=== PATIENT | male | born 1975 | race Caucasian/White ===

== ENCOUNTER 2020-08-18 10:48 | Outpatient (REF) | payer OTHER, SELFPAY ==
[2020-08-18 11:02] LABS: MANUAL DIFF FLAG NO
[2020-08-18 11:38] LABS: Basophils Absolute Auto 0.1 X10*3/uL (0.0-0.2); Basophils Percent Auto 1.1 % (0-2); Eosinophils Absolute Auto 0.2 X10*3/uL (0.0-0.4); Eosinophils Percent Auto 2.8 % (0-4); Hemoglobin 14.8 g/dl (14.0-18.0); Imm Gran Abs Auto 0.02 X10*3/uL (0.00-0.03); Imm Gran Pct Auto 0.3 % (0.0-0.4); Lymphocytes Absolute Auto 2.6 X10*3/uL (1.2-4.9); Lymphocytes Percent Auto 40.6 % (20-40); Mean Corpuscular HGB Conc 32.2 g/dl (31.0-36.0); Mean Corpuscular Hemoglobin 30.2 pg (27.0-33.0); Mean Corpuscular Volume 93.9 fL (80-98); Mean Platelet Volume 11.2 fL (9.4-12.4); Monocytes Absolute Auto 0.5 X10*3/uL (0.1-1.2); Neutrophils Absolute Auto 3.1 X10*3/uL (2.0-8.3); Neutrophils Percent Auto 48.2 % (45-73); Platelet Count 223 X10*3/uL (160-400); Red Cell Distribution Width 12.9 % (11.0-16.0); White Blood Count 6.5 X10*3/uL (4.8-10.8)
[2020-08-18 11:52] LABS: Glucose Urine UA NEG (NEG); Leukocyte Esterase Urine NEG (NEG); Nitrite Urine NEG (NEG); Specific Gravity - Urine >= 1.030 (1.005-1.025); Urine Blood NEG (NEG); Urine Ketones NEG (NEG); Urine Protein TRACE MG/DL (NEG-TRACE)
[2020-08-18 11:57] LABS: Appearance Urine CLEAR; Color Urine YELLOW
[2020-08-18 12:56] LABS: Alanine Aminotransferase 19 U/L (0-40); Albumin Level 4.1 g/dL (3.5-5.0); Alkaline Phosphatase 54 U/L (39-117); Anion Gap 12 (12-20); Aspartate Amino Transferase 18 U/L (5-37); Bilirubin Total 2.4 mg/dL (0.0-1.0); Blood Urea Nitrogen 17 mg/dL (9-16); Calcium 9.3 mg/dL (8.4-10.2); Carbon Dioxide 26 mmol/L (22-29); Chloride 107 mmol/L (96-108); Cholesterol 226 mg/dL; Estimated Glomerular Filt Rate > 60; Glucose Fasting 98 mg/dL (60-99); HDL Cholesterol 60 mg/dL; LDL Cholesterol Calculated 149 mg/dl; Potassium 3.8 mmol/L (3.3-5.1); Sodium 141 mmol/L (135-145); Total Protein 6.9 g/dL (6.5-8.0); Triglycerides 87 mg/dL
[2020-08-18 13:51] LABS: PSA,Total (Free>4and<10) 0.81 ng/mL (0.00-4.00)
== END 2020-08-18 10:49 | disposition home or self-care (01) ==
LOC: HO.LNP 10:48
PROVIDERS: Visit Provider Internal Medicine
DX: Z00.00 Encounter for general adult medical examination without abnormal findings (principal); I10 Essential (primary) hypertension
CPT/HCPCS: 80053; 80061; 81003; 84153; 85025

== ENCOUNTER 2021-08-17 10:52 | Outpatient (REF) | payer OTHER, SELFPAY ==
[2021-08-17 10:54] LABS: MANUAL DIFF FLAG NO
[2021-08-17 11:21] LABS: Appearance Urine CLEAR; Color Urine YELLOW; Glucose Urine UA NEG (NEG); Leukocyte Esterase Urine NEG (NEG); Nitrite Urine NEG (NEG); Specific Gravity - Urine 1.025 (1.005-1.025); Urine Blood NEG (NEG); Urine Ketones NEG (NEG); Urine Protein NEG (NEG-TRACE)
[2021-08-17 11:24] LABS: Basophils Absolute Auto 0.1 X10*3/uL (0.0-0.2); Basophils Percent Auto 0.8 % (0-2); Eosinophils Absolute Auto 0.3 X10*3/uL (0.0-0.4); Eosinophils Percent Auto 3.9 % (0-4); Hematocrit 43.8 % (42.0-52.0); Hemoglobin 14.1 g/dl (14.0-18.0); Imm Gran Abs Auto 0.02 X10*3/uL (0.00-0.03); Imm Gran Pct Auto 0.3 % (0.0-0.4); Lymphocytes Absolute Auto 2.8 X10*3/uL (1.2-4.9); Lymphocytes Percent Auto 35.8 % (20-40); Mean Corpuscular HGB Conc 32.2 g/dl (31.0-36.0); Mean Corpuscular Hemoglobin 30.3 pg (27.0-33.0); Mean Platelet Volume 11.4 fL (9.4-12.4); Monocytes Absolute Auto 0.6 X10*3/uL (0.1-1.2); Monocytes Percent Auto 7.3 % (2-11); NRBC Pct Auto 0.5 /100WBC (0.0-0.2); Neutrophils Percent Auto 51.9 % (45-73); Platelet Count 194 X10*3/uL (160-400); Red Blood Count 4.66 X10*6/uL (4.60-5.80); Red Cell Distribution Width 13.2 % (11.0-16.0); White Blood Count 7.7 X10*3/uL (4.8-10.8)
[2021-08-17 11:33] LABS: Alanine Aminotransferase 25 U/L (0-40); Albumin Level 3.9 g/dL (3.5-5.0); Alkaline Phosphatase 49 U/L (39-117); Anion Gap 13 (12-20); Aspartate Amino Transferase 18 U/L (5-37); Bilirubin Total 2.1 mg/dL (0.0-1.0); Blood Urea Nitrogen 12 mg/dL (9-16); Calcium 8.8 mg/dL (8.4-10.2); Carbon Dioxide 26 mmol/L (22-29); Chloride 106 mmol/L (96-108); Cholesterol 200 mg/dL; Estimated Glomerular Filt Rate > 60; Glucose Fasting 97 mg/dL (60-99); HDL Cholesterol 52 mg/dL; LDL Cholesterol Calculated 127 mg/dl; Potassium 3.9 mmol/L (3.3-5.1); Sodium 141 mmol/L (135-145); Total Protein 6.8 g/dL (6.5-8.0); Triglycerides 105 mg/dL
[2021-08-17 11:55] LABS: PSA,Total (Free>4and<10) 0.73 ng/mL (0.00-4.00); WBC Urine 0 /HPF (0-4)
[2021-08-17 11:56] LABS: Mucus Urine TRACE /LPF; RBC Urine 0-2 /HPF (0); Squamous Epithelial Cell Urine TRACE /LPF
== END 2021-08-17 10:53 | disposition home or self-care (01) ==
LOC: HO.LNP 10:52
PROVIDERS: PCP Internal Medicine; Visit Provider Internal Medicine
DX: Z00.00 Encounter for general adult medical examination without abnormal findings (principal); Z12.5 Encounter for screening for malignant neoplasm of prostate; I10 Essential (primary) hypertension
CPT/HCPCS: 80053; 80061; 81001; 84153; 85025

== ENCOUNTER 2021-08-19 10:22 | Outpatient (REF) | payer OTHER, SELFPAY ==
[2021-08-19 10:26] LABS: MANUAL DIFF FLAG NO
[2021-08-19 11:10] LABS: Basophils Absolute Auto 0.1 X10*3/uL (0.0-0.2); Eosinophils Absolute Auto 0.3 X10*3/uL (0.0-0.4); Hemoglobin 14.3 g/dl (14.0-18.0); Imm Gran Abs Auto 0.02 X10*3/uL (0.00-0.03); Imm Gran Pct Auto 0.3 % (0.0-0.4); Lymphocytes Absolute Auto 2.8 X10*3/uL (1.2-4.9); Lymphocytes Percent Auto 41.3 % (20-40); Mean Corpuscular HGB Conc 32.5 g/dl (31.0-36.0); Mean Corpuscular Hemoglobin 30.4 pg (27.0-33.0); Mean Corpuscular Volume 93.6 fL (80.0-98.0); Mean Platelet Volume 11.7 fL (9.4-12.4); Monocytes Absolute Auto 0.4 X10*3/uL (0.1-1.2); Monocytes Percent Auto 5.9 % (2-11); Neutrophils Absolute Auto 3.2 x10*3/uL (2.0-8.3); Neutrophils Percent Auto 47.5 % (45-73); Platelet Count 191 X10*3/uL (160-400); White Blood Count 6.8 X10*3/uL (4.8-10.8)
== END 2021-08-19 10:23 | disposition home or self-care (01) ==
LOC: HO.LNP 10:22
PROVIDERS: Visit Provider Internal Medicine
DX: R79.89 Other specified abnormal findings of blood chemistry (principal)
CPT/HCPCS: 85025

== ENCOUNTER → 2021-10-05 14:57 | Outpatient (REF) | payer OTHER, SELFPAY ==
--- NOTE | 2021-10-05 15:01 | CA_ITS ---
Transthoracic Echocardiogram Patient (Last, First, Middle): Domingo Villa L Gender: Male Date of : 1975 Age: 46 Procedure Date: 10/05/2021 Procedure Type: Transthoracic Echocardiogram Location: OP Height: 180.34 cm Weight: 79.38 kg BSA: 1.99 m2 Heart Rate: bpm BP: 122 / 60 mmHg Newspaper Copy Editor: Referring MD: Murray Muhammad MD Symptoms: Q23.1 BICUSPID AORTIC VALVE Study Quality: Fair ECG Rhythm: Sinus Conclusions: - The left ventricular systolic function is normal. The calculated ejection fraction is 57% by biplane method. - Stated bicuspid valve based on prior studies but not well visualized in this study. Mild aortic stenosis. No significant regurgitation. - There is mild dilatation of the ascending aorta measuring 3.80 cm. Findings Left Ventricle Normal left ventricular cavity size. There is normal left ventricular wall thickness. The left ventricular systolic function is normal. The calculated ejection fraction is 57% by biplane method. There is no evidence of regional wall motion abnormalities. Diastolic function is normal for age. Right Ventricle Normal right ventricular cavity size and systolic function. Atria Both atria are normal in size. Aortic Valve The aortic valve was not well visualized. There is mild calcification of the aortic valve. There is mild aortic valve stenosis. The mean gradient is 7 mmHg. The aortic valve area is 1.53 cm2. There is trace (trivial) aortic valve regurgitation. Images not adequate to comment on bicuspid valve. Mitral Valve The mitral valve appears normal. There is trace mitral valve regurgitation. There is no mitral valve stenosis. Pulmonic Valve The pulmonic valve is likely normal. Tricuspid Valve There is trace tricuspid valve regurgitation. The pulmonary artery systolic pressure is normal. Great Vessels The sinuses of valsalva is normal in size. There is mild dilatation of the ascending aorta measuring 3.80 cm. Venous The inferior vena cava is normal in size and collapses greater than 50% with inspiration. Pericardium/Pleural There is no evidence of pericardial effusion. Prior Study Comparison Changes noted compared to prior study dated: 11/08/2019. Aortic valve area appears slightly smaller than previous study. See comments on ascending aorta. Measurements 2D Linear Measurements IVSd: 1.01 0.6-0.9/0.6-1.0 cm LVIDd: 5.31 3.9-5.3/4.2-5.9 cm LVIDd Index: 2.67 2.4-3.2/2.2-3.1 cm/m2 LVIDs: 3.37 2.0-3.6 cm LVPWd: 1.07 0.7-1.1 cm Ao Root: 3.40 2.1-3.5 cm LA Diam: 3.40 2.7-3.8/3.0-4.0 cm LAIDs Index: 1.71 1.5-2.3 cm/m2 LV Mass: 264.02 67-162/88-224 g LV Mass Index: 132.67 43-95/49-115 g/m2 LVOT Diam: 2.00 3.0+(-)1.3 cm 2D Systolic Function EF 4C: 52.00 >55% EF 2C: 61.80 >55% EF BiP: 57.30 >55% Mitral Valve MV Pk E: 0.79 MV PK A: 0.69 MV Decel Time: 278.00 E/A: 1.10 E'Lateral: 12.40 E'Medial: 7.83 E/E' Med: 10.10 E/E' Lat: 6.40 PHT: 81.00 MVA PHT: 2.72 Decel [place]: 2.84 Aortic Valve AoV Pk Lisandro: 1.91 AoV Mn Lisandro: 1.25 AoV VTI: 0.48 AoV Pk Grad: 15.00 Aov Mn Grad: 7.00 MAL Cont.VTI: 1.53 LVOT LVOT Pk Lisandor: 0.91 LVOT Mn Lisandro: 0.65 LVOT VTI: 0.24 LVOT Pk Grad: 3.00 LVOT Mn Grad: 2.00 LVOT Diam: 2.00 LVOT Area: 3.14 Diastolic Function MV Pk E: 0.79 MV Pk A: 0.69 E/A: 1.10 E'Medial: 7.83 E/E' Med: 10.10 E' Laterial: 12.40 E/E' Lat: 6.40 Right Ventricle TAPSE (mm): 26.00 TVS' Lisandro: 11.00 Tricuspid Valve TR Pk Lisandro: 1.95 TR Pk Grad: 15.00 RA Press: 3.00 RVSP: 18.00 Great Vessels Aorta Ao Root-2D: 3.40 2.0-3.7 cm Ao Asc: 3.80 2.1-3.4 cm Pulmonary Valve PV Pk Lisandro: 1.04 Peak PV Grad: 4.00 Updated in Other Vendor System with Status of Final Tien Andre MD electronically signed on 10/06/2021 10:50:07 AM with status of Final
== END ==
LOC: HO.CARD 14:57
PROVIDERS: PCP Internal Medicine; Visit Provider Internal Medicine
DX: Q23.1 Congenital insufficiency of aortic valve (principal)
CPT/HCPCS: 93306

== ENCOUNTER 2021-11-26 15:47 | Outpatient (REF) | payer OTHER, SELFPAY ==
[2021-12-03 23:21] LABS: Stone Source RIGHT KIDNEY STONE
== END 2021-11-26 15:48 | disposition home or self-care (01) ==
LOC: HO.LNP 15:47
PROVIDERS: Visit Provider Internal Medicine
DX: N20.0 Calculus of kidney (principal)
CPT/HCPCS: 82365; 88300

== ENCOUNTER 2022-01-26 12:14 | Day surgery (SDC) | payer OTHER, SELFPAY ==
--- NOTE | 2022-01-25 13:33 | HO.ANESPROP2 ---
Documented by User: Mckenzie Askew NP 01/25/22 13:36 HPI - Anesthesia Eval Consult details Narrative: 46yo M for Colonoscopy [facility] Past Medical History Medical History Bicuspid aortic valve GERD (gastroesophageal reflux disease) Kidney stone (~11/2021) PVCs (premature ventricular contractions) Surgical History Surgical History Hx of esophagogastroduodenoscopy (~2015) Social History Social History (Updated 01/25/22 @ 13:34 by Mckenzie Askew NP) Patient Tobacco Use Status: Never used Tobacco Use of substances other than those prescribed or required for medical reasons: No Are you DNR?: No Advance Directives: No Advance Directives Information Provided: Yes Meds Allergies Allergy/AdvReac Type Severity Reaction Status Date / Time sulfa drugs Allergy Unknown Uncoded 08/21/18 00:00 Exam Exam Date and Time: January 25, 2022 1333 Narrative Narrative: ECHO 09/2021 Conclusions: - The left ventricular systolic function is normal.? The ? calculated ejection fraction is 57% by biplane method. ? - Stated bicuspid valve based on prior studies but not well? ? ? visualized in this study.? Mild aortic stenosis.? No significant regurgitation. ? - There is mild dilatation of the ascending aorta measuring 3.80 cm.? Assessment and Plan Assessment Anesthesia Assessment: Chart Reviewed Documented by User: Wong Solano MD 01/26/22 13:26 [facility] Past Medical History Medical History Bicuspid aortic valve GERD (gastroesophageal reflux disease) Kidney stone (~11/2021) PVCs (premature ventricular contractions) Family History Family history of problems with anesthesia: No Surgical History Surgical History Hx of esophagogastroduodenoscopy (~2016) History of Problems with Anesthesia: No Social History Social History (Updated 01/25/22 @ 13:34 by Mckenzie Askew NP) Patient Tobacco Use Status: Never used Tobacco Use of substances other than those prescribed or required for medical reasons: No Are you DNR?: No Advance Directives: No Advance Directives Information Provided: Yes Meds Allergies Allergy/AdvReac Type Severity Reaction Status Date / Time sulfa drugs Allergy Unknown Uncoded 08/21/18 00:00 Exam Airway Mallampati Class: II TM Dist: >3cm Neck ROM: Full Loose/Missing/Broken Teeth: No Heart: rrr Lungs: clear Assessment and Plan Final Anesthetic Review Family History of Problems with Anesthesia: No History of Problems with Anesthesia: No NPO: Yes ASA Class: II Final Preanesthetic Review: No Changes in Pt Med Stat, Meds/Allgs Chart Reviewed, Consent Obtained/Reviewed and Anes Risks/Benef Reviewed Patient Risk: Low Procedure Risk: Low Anesthetic Plan Anesthetic Plan: MAC: Disposition: Standard PACU
[2022-01-26 12:27] VITALS: BMI 24.4
[2022-01-26 12:37] VITALS: BP 145/82; PULSE 56; RESP 18; TEMP 36.1; O2SAT 95
[2022-01-26] MEDS: Lactated Ringers 1,000 ML 50 ML IVCONT (12:51)
--- NOTE | 2022-01-26 13:23 | MHC.SHP ---
Pre-Procedural Eval Section A Date of Service: 01/26/22 The patient is an INPATIENT: No Changes since office visit: No Cold of Flu in the past 2 weeks, No New Medical Problems, No Changes in Medication and No Patient answered all questions The History & Physical has been completed within 30 days and I have reviewed it.: Yes Section B Chief Complaint: Encounter for screening for malignant neoplasm of Allergies: Allergies Allergy/AdvReac Type Severity Reaction Status Date / Time sulfa drugs Allergy Unknown Uncoded 08/21/18 00:00 Plan I have reviewed the history and physical and performed a pertinent physical examination on my patient. No changes have occurred unless specified.
--- NOTE | 2022-01-26 13:53 | PM.OP ---
Brief Operative Note Date of Service: 01/26/22 Pre-op diagnosis: screening Post-op diagnosis: same Procedure: colonoscopy Surgeon: Vega Jacinto Anesthesia: MAC Was an Woodworking Machine Operator used for this Procedure?: No Estimated blood loss (mL): 2 Pathology: other Condition: stable Disposition: PACU
[2022-01-26 14:02] VITALS: BP 116/62; PULSE 61; RESP 12; TEMP 36; O2SAT 98
[2022-01-26 14:17] VITALS: BP 137/75; PULSE 57; RESP 18; TEMP 36.1; O2SAT 100
--- NOTE | 2022-01-27 01:04 | OP_ITS ---
SURGEON: Vega Jacinto MD INDICATIONS: Colon cancer screening. PREOPERATIVE DIAGNOSIS: POSTOPERATIVE DIAGNOSIS: PROCEDURE PERFORMED: Colonoscopy to the terminal ileum with biopsy. ESTIMATED BLOOD LOSS: COMPLICATIONS: ANESTHESIA: Monitored anesthesia care. ASSISTANTS: SPECIMENS: DESCRIPTION OF PROCEDURE: Procedure date is 01/26/22. History and physical performed. The risks and benefits of the procedure were explained to the patient. Informed consent was obtained. The patient was placed in the left lateral decubitus position. A digital rectal exam was performed and was found to be normal. The Olympus pediatric video colonoscope was introduced into the rectum and advanced to the cecum without difficulty. The cecum was identified by transillumination, palpation, and identification of ileocecal valve. Examination was performed. The scope was removed. He tolerated the procedure well and was transferred to the recovery area in stable condition. FINDINGS: The terminal ileum was normal. The visualized colonic mucosa was normal. The quality of the prep was good. A single polyp measuring less than 5 mm was identified at 65 cm was removed with biopsy forceps. No other polyps were seen. Retroflexed examination showed some small internal hemorrhoids. IMPRESSION: Colon polyp. RECOMMENDATION: Follow up the biopsy results. MD RAFAL Packer/OZZY / [id number] MTDFeliberto
== END 2022-01-26 14:47 | disposition home or self-care (01) ==
PROVIDERS: PCP Internal Medicine; Visit Provider Internal Medicine Gastroenterology
PROC: 0DJD8ZZ Inspection of Lower Intestinal Tract, Via Natural or Artificial Opening Endoscopic (ICD-10-PCS; CPT 45378; principal; 2022-01-26 13:00)
DX: Z12.11 Encounter for screening for malignant neoplasm of colon (principal); D12.4 Benign neoplasm of descending colon; K64.8 Other hemorrhoids; K21.9 Gastro-esophageal reflux disease without esophagitis; Z88.2 Allergy status to sulfonamides
CPT/HCPCS: 45380; 88305

== ENCOUNTER 2022-08-19 11:21 | Outpatient (REF) | payer OTHER, SELFPAY ==
[2022-08-19 11:24] LABS: MANUAL DIFF FLAG NO
[2022-08-19 11:46] LABS: Basophils Absolute Auto 0.1 X10*3/uL (0.0-0.2); Basophils Percent Auto 0.8 % (0-2); Eosinophils Absolute Auto 0.2 X10*3/uL (0.0-0.4); Eosinophils Percent Auto 2.3 % (0-4); Hematocrit 47.8 % (42.0-52.0); Hemoglobin 15.4 g/dl (14.0-18.0); Imm Gran Abs Auto 0.03 X10*3/uL (0.00-0.03); Imm Gran Pct Auto 0.3 % (0.0-0.4); Lymphocytes Absolute Auto 3.7 X10*3/uL (1.2-4.9); Lymphocytes Percent Auto 38.2 % (20-40); Mean Corpuscular HGB Conc 32.2 g/dl (31.0-36.0); Mean Corpuscular Hemoglobin 30.4 pg (27.0-33.0); Mean Corpuscular Volume 94.5 fL (80.0-98.0); Mean Platelet Volume 11.3 fL (9.4-12.4); Monocytes Absolute Auto 0.6 X10*3/uL (0.1-1.2); Monocytes Percent Auto 6.2 % (2-11); Neutrophils Percent Auto 52.2 % (45-73); Platelet Count 221 X10*3/uL (160-400); Red Blood Count 5.06 X10*6/uL (4.60-5.80); Red Cell Distribution Width 13.1 % (11.0-16.0); White Blood Count 9.6 X10*3/uL (4.8-10.8)
[2022-08-19 11:51] LABS: Appearance Urine Clear; Color Urine Yellow; Glucose Urine UA Negative (Negative); Leukocyte Esterase Urine Negative (Negative); Nitrite Urine Negative (Negative); PH 5.5 (5.0-9.0); Specific Gravity - Urine 1.025 (1.005-1.025); Urine Blood Negative (Negative); Urine Ketones Negative (Negative); Urine Protein Negative (Neg-Trace)
[2022-08-19 11:55] LABS: Bacteria Urine None Seen (None Seen); Squamous Epithelial Cell Urine 0-2 /HPF (0-2); WBC Urine 0-5 /HPF (0-5)
[2022-08-19 12:28] LABS: Alanine Aminotransferase 23 U/L (0-40); Albumin Level 4.1 g/dL (3.5-5.0); Alkaline Phosphatase 61 U/L (39-117); Anion Gap 11 (12-20); Aspartate Amino Transferase 18 U/L (5-37); Bilirubin Total 2.3 mg/dL (0.0-1.0); Blood Urea Nitrogen 17 mg/dL (9-16); Calcium 9.4 mg/dL (8.4-10.2); Carbon Dioxide 29 mmol/L (22-29); Chloride 106 mmol/L (96-108); Cholesterol 257 mg/dL; Estimated Glomerular Filt Rate > 60; Glucose Fasting 104 mg/dL (60-99); HDL Cholesterol 60 mg/dL; LDL Cholesterol Calculated 177 mg/dl; Potassium 3.8 mmol/L (3.3-5.1); Sodium 142 mmol/L (135-145); Total Protein 7.4 g/dL (6.5-8.0); Triglycerides 103 mg/dL
[2022-08-19 12:40] LABS: PSA,Total (Free>4and<10) 0.84 ng/mL (0.00-4.00)
== END 2022-08-19 11:22 | disposition home or self-care (01) ==
LOC: HO.LNP 11:21
PROVIDERS: Visit Provider Internal Medicine
DX: Z00.00 Encounter for general adult medical examination without abnormal findings (principal); Z12.5 Encounter for screening for malignant neoplasm of prostate; I10 Essential (primary) hypertension
CPT/HCPCS: 80053; 80061; 81001; 84153; 85025

== ENCOUNTER 2023-08-24 11:06 | Outpatient (REF) | payer OTHER, SELFPAY ==
[2023-08-24 11:12] LABS: MANUAL DIFF FLAG NO
[2023-08-24 11:16] LABS: Basophils Absolute Auto 0.1 X10*3/uL (0.0-0.2); Basophils Percent Auto 0.8 % (0-2); Eosinophils Absolute Auto 0.2 X10*3/uL (0.0-0.4); Eosinophils Percent Auto 2.7 % (0-4); Hematocrit 46.1 % (42.0-52.0); Imm Gran Abs Auto 0.03 X10*3/uL (0.00-0.03); Imm Gran Pct Auto 0.3 % (0.0-0.4); Lymphocytes Absolute Auto 3.5 X10*3/uL (1.2-4.9); Mean Corpuscular HGB Conc 32.5 g/dl (31.0-36.0); Mean Corpuscular Hemoglobin 30.2 pg (27.0-33.0); Mean Corpuscular Volume 92.8 fL (80.0-98.0); Mean Platelet Volume 11.4 fL (9.4-12.4); Monocytes Absolute Auto 0.6 X10*3/uL (0.1-1.2); Monocytes Percent Auto 6.5 % (2-11); Neutrophils Absolute Auto 4.5 x10*3/uL (2.0-8.3); Neutrophils Percent Auto 50.7 % (45-73); Platelet Count 243 X10*3/uL (160-400); Red Blood Count 4.97 X10*6/uL (4.60-5.80); Red Cell Distribution Width 13.2 % (11.0-16.0); White Blood Count 8.9 X10*3/uL (4.8-10.8)
[2023-08-24 11:26] LABS: Appearance Urine Clear; Color Urine Yellow; Glucose Urine UA Negative (Negative); Leukocyte Esterase Urine Negative (Negative); Nitrite Urine Negative (Negative); PH 6.5 (5.0-9.0); Urine Blood Negative (Negative); Urine Ketones Negative (Negative); Urine Protein Negative (Neg-Trace)
[2023-08-24 11:29] LABS: Bacteria Urine None Seen (None Seen); Hyaline Casts Urine 0-2 /LPF (0-2); RBC Urine 0-2 /HPF (0-2); Squamous Epithelial Cell Urine 0-2 /HPF (0-2); WBC Urine 0-5 /HPF (0-5)
[2023-08-24 11:31] LABS: Alanine Aminotransferase 39 U/L (0-40); Albumin Level 4.1 g/dL (3.5-5.0); Alkaline Phosphatase 71 U/L (39-117); Anion Gap 12 (12-20); Aspartate Amino Transferase 23 U/L (5-37); Bilirubin Total 1.3 mg/dL (0.0-1.0); Blood Urea Nitrogen 16 mg/dL (9-16); Calcium 9.2 mg/dL (8.4-10.2); Carbon Dioxide 27 mmol/L (22-29); Chloride 106 mmol/L (96-108); Cholesterol 226 mg/dL (<200); Estimated Glomerular Filt Rate > 60; Glucose Fasting 100 mg/dL (60-99); HDL Cholesterol 53 mg/dL (>40); LDL Cholesterol Calculated 156 mg/dL (<100); Potassium 4.2 mmol/L (3.3-5.1); Sodium 141 mmol/L (135-145); Total Protein 7.1 g/dL (6.5-8.0); Triglycerides 86 mg/dL (<150)
[2023-08-24 11:54] LABS: PSA,Total (Free>4and<10) 1.32 ng/mL (0.00-4.00)
== END 2023-08-24 11:07 | disposition home or self-care (01) ==
LOC: HO.LNP 11:06
PROVIDERS: Visit Provider Internal Medicine
DX: Z00.00 Encounter for general adult medical examination without abnormal findings (principal); I10 Essential (primary) hypertension; E78.00 Pure hypercholesterolemia, unspecified; Z12.5 Encounter for screening for malignant neoplasm of prostate
CPT/HCPCS: 80053; 80061; 81001; 84153; 85025

== ENCOUNTER → 2023-10-03 14:57 | Outpatient (REF) | payer OTHER, SELFPAY ==
--- NOTE | 2023-10-03 15:00 | CA_ITS ---
Transthoracic Echocardiogram Patient (Last, First, Middle): Domingo Villa L Gender: Male Date of : 1975 Age: 48 Procedure Date: 10/03/2023 Procedure Type: Transthoracic Echocardiogram Location: OP Height: 180.34 cm Weight: 82.56 kg BSA: 2.03 m2 Heart Rate: bpm BP: 130 / 84 mmHg Spool Hauler: JUANCHO Referring MD: Murray Muhammad MD Symptoms: Q23.1 BICUSPID AV Study Quality: Adequate ECG Rhythm: Sinus Conclusions: - The left ventricular systolic function is normal. The calculated ejection fraction is 62% by biplane method. - There is a bicuspid aortic valve. There is mild aortic valve regurgitation. - There is mild dilatation of the ascending aorta measuring 3.80 cm. Findings Left Ventricle Normal left ventricular cavity size. There is normal left ventricular wall thickness. The left ventricular systolic function is normal. The calculated ejection fraction is 62% by biplane method. There is no evidence of regional wall motion abnormalities. Diastolic function is normal for age. Right Ventricle Normal right ventricular cavity size and systolic function. Atria Both atria are normal in size. Aortic Valve There is a bicuspid aortic valve. There is no aortic valve stenosis. There is mild aortic valve regurgitation. Mitral Valve The mitral valve appears normal. There is trace mitral valve regurgitation. There is no mitral valve stenosis. Pulmonic Valve The pulmonic valve is likely normal. Tricuspid Valve There is mild tricuspid valve regurgitation. There is no evidence of pulmonary hypertension. Great Vessels There is mild dilatation of the ascending aorta measuring 3.80 cm. Venous The inferior vena cava is normal in size and collapses greater than 50% with inspiration. Pericardium/Pleural There is no evidence of pericardial effusion. Prior Study Comparison No significant change compared to prior study dated: 10/05/2021. Measurements 2D Linear Measurements IVSd: 1.01 0.6-0.9/0.6-1.0 cm LVIDd: 4.66 3.9-5.3/4.2-5.9 cm LVIDd Index: 2.30 2.4-3.2/2.2-3.1 cm/m2 LVIDs: 2.98 2.0-3.6 cm LVPWd: 0.97 0.7-1.1 cm LA Diam: 3.70 2.7-3.8/3.0-4.0 cm LAIDs Index: 1.82 1.5-2.3 cm/m2 LV Mass: 199.09 67-162/88-224 g LV Mass Index: 98.07 43-95/49-115 g/m2 LVOT Diam: 2.50 3.0+(-)1.3 cm 2D Systolic Function EF 4C: 64.50 >55% EF 2C: 60.20 >55% EF BiP: 62.30 >55% Mitral Valve MV Pk E: 0.81 MV PK A: 0.79 MV Decel Time: 298.00 E/A: 1.00 E'Lateral: 11.50 E'Medial: 9.68 E/E' Med: 8.40 E/E' Lat: 7.00 PHT: 87.00 MVA PHT: 2.53 Decel [place]: 2.72 Aortic Valve AoV Pk Lisandro: 2.09 AoV Mn Lisandro: 1.55 AoV VTI: 0.44 AoV Pk Grad: 17.00 Aov Mn Grad: 11.00 MAL Cont.VTI: 2.28 AI Pk Lisandro: 3.96 AI VTI: 2.15 LVOT LVOT Pk Lisandro: 0.92 LVOT Mn Lisandro: 0.66 LVOT VTI: 0.20 LVOT Pk Grad: 3.00 LVOT Mn Grad: 2.00 LVOT Diam: 2.50 LVOT Area: 4.91 Diastolic Function MV Pk E: 0.81 MV Pk A: 0.79 E/A: 1.00 E'Medial: 9.68 E/E' Med: 8.40 E' Laterial: 11.50 E/E' Lat: 7.00 Right Ventricle TAPSE (mm): 25.60 TVS' Lisandro: 13.30 Tricuspid Valve TR Pk Lisandro: 2.16 TR Pk Grad: 19.00 RA Press: 3.00 RVSP: 22.00 Great Vessels Aorta Sinus of Valsalva: 4.03 2.0-3.[address] [place]: 2.97 1.7-3.4 cm Ao Asc: 3.80 2.1-3.4 cm Updated in Other Vendor System with Status of Final Tien Andre MD electronically signed on 10/04/2023 10:25:35 AM with status of Final
== END ==
LOC: HO.CARD 14:57
PROVIDERS: PCP Internal Medicine; Visit Provider Internal Medicine
DX: Q23.1 Congenital insufficiency of aortic valve (principal)
CPT/HCPCS: 93306

== ENCOUNTER → 2023-10-03 15:00 | Outpatient (BNV) | payer OTHER, SELFPAY | PROVIDERS: PCP Internal Medicine; Visit Provider Internal Medicine | DX: Q23.1 Congenital insufficiency of aortic valve (principal); I36.1 Nonrheumatic tricuspid (valve) insufficiency | CPT/HCPCS: 93303 ==

== ENCOUNTER 2023-12-29 18:23 | Emergency (ER) | payer OTHER, SELFPAY ==
--- NOTE | ~2023-12-29 | US_ITS ---
EXAMINATION: US TRIPLEX LOWER EXTREMITY, LEFT CLINICAL INFORMATION: Left lower extremity pain. COMPARISON: None available. TECHNIQUE: Color-flow triplex imaging with spectral analysis and compression Doppler were performed on the left lower extremity. FINDINGS: Respiratory variation, normal compression and augmented flow are noted throughout the left lower extremity. The visualized common femoral vein, superficial femoral vein, profunda femoral vein, popliteal vein and midcalf peroneal and posterior tibial venous segments show no evidence of deep venous thrombosis. There is no Mirza's cyst. There are prominent left groin lymph nodes measuring up to 2.1 cm. US/US venous duplex LE LT IMPRESSION: No evidence of deep venous thrombosis involving the left lower extremity. Electronically signed by: Grayson Echevarria MD 12/29/2023 11:48 PM EDT
[2023-12-29 18:29] VITALS: BP 150/72; PULSE 70; RESP 18; TEMP 37.1; O2SAT 100; BMI 27.9
--- NOTE | 2023-12-29 18:29 | ED_ITS ---
HPI - General Adult General Chief complaint: Extremity Injury, Lower Stated complaint: L thigh pain, no known injury Time Seen by Provider: 12/29/23 20:58 Source: patient, RN notes reviewed and old records reviewed Mode of arrival: ambulatory Limitations: no limitations History of Present Illness ED Provider: Blessing HPI narrative: 48-year-old male who denies any past medical history presents for evaluation of left thigh pain Patient reports he has had pain for the last 5 days on Monday He reports that he was camping in the few days prior. He does not believe he was bit by anything. He denies any strenuous activity. Denies any falls or trauma to the left leg. 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 Denies any history of DVT or PE He has not noticed any redness, swelling to the left inner thigh where his pain is He reports his pain has been getting worse over the last few days Related Data Previous Rx's ?Medication ?Instructions ?Recorded cephalexin 500 mg capsule 500 mg PO QID #27 caps 12/29/23 Allergies Allergy/AdvReac Type Severity Reaction Status Date / Time sulfa drugs Allergy Unknown Hives Uncoded 12/29/23 18:32 Review of Systems Constitutional: Constitutional: Denies body ache(s), Denies chills, Denies fever(s) and Denies headache(s) Eyes: Eyes: Denies blurry vision ENT: Denies vertigo and Denies headache(s) Cardiovascular: Cardiovascular: Denies chest pain and Denies dyspnea Respiratory: Respiratory: Denies cough and Denies dyspnea Gastrointestinal: Gastrointestinal: Denies abdominal pain, Denies nausea and Denies vomiting Musculoskeletal: Musculoskeletal: Denies back pain Integumentary/Breasts: Skin/Breast: Denies erythema and Denies rash Neurologic: Denies vertigo and Denies headache(s) ON LICENSE OF [facility] Past Medical History Medical History (Updated 12/29/23 @ 23:21 by Domingo Funk) GERD (gastroesophageal reflux disease) Kidney stone (~11/2021) PVCs (premature ventricular contractions) Bicuspid aortic valve Surgical History Hx of esophagogastroduodenoscopy (~2015) Social History Social History (Updated 01/25/22 @ 13:34 by Mckenzie Askew NP) Patient Tobacco Use Status: Never used Tobacco Advance Directives: No Advance Directives Information Provided: No Do you have a plan to hurt others: No Plan Physical Exam ED Vital Signs: Vital Signs - 24 hr 12/29/23 18:29 12/29/23 20:34 12/29/23 23:40 Temperature 98.7 F 97.0 F 97.0 F Pulse Rate 70 70 70 Respiratory Rate 18 16 16 Blood Pressure 150/72 H 155/94 H 155/94 H Pulse Oximetry 100 99 99 Oxygen Delivery Method Room Air Room Air Room Air BMI result Body Mass Index 27.9 Const General: healthy appearing, comfortable, no acute distress, alert and awake Nutritional Appearance: well nourished Orientation/consciousness: patient oriented x3 HENMT Head: Yes normocephalic and Yes atraumatic Eyes Eyelids: Yes eyelids normal Conjunctivae: conjunctivae normal Sclerae: sclerae normal Corneas: corneas normal Pupils: Equal, round and reactive pupils present EOM: EOMs intact bilaterally Neck Neck: Yes full ROM Resp Effort & Inspection: normal respiratory effort, able to speak in complete senten deann and not labored Cardio Rate: regular rate Rhythm: regular rhythm Skin Other: Patient does have an area about 2 x 4 cm area of faint erythema to the left inner thigh. This area is tender to palpation. No significant edema, no wounds. General skin exam: elasticity normal Neuro General: patient oriented x3 Cranial nerves: Yes Equal, round and reactive pupils present and Yes Bilaterally intact EOM present Cognition (Neuro): normal cognition Extrem Other: Moving all extremities well without any obvious deformities Course Course Course Narrative: This is a rapid medical exam performed by Riley Booth NP: Additional HPI, ROS, PE not included below will be deferred to primary provider. Patient is a 48-year-old male presenting to the ED with complaint of left medial thigh pain since Monday. Progressively worsening. No known injury. Denies any erythema, bruising, swelling. Plan: unable to visualize in triage, will need full exam by primary provider Reevaluation(s) Reevaluation #1: Ultrasound is negative for DVT. The patient does have an enlarged lymph node likely from an acute cellulitis. We will treat with cephalexin. Return precautions were given Time: 23:20 Medications Administered Discontinued Medications Generic Name Dose Route Start Last Admin Trade Name Freq PRN Reason Stop Dose Admin Cephalexin HCl 500 mg 12/29/23 23:20 12/29/23 23:36 Cephalexin 500 Mg Capsule PO 12/29/23 23:21 500 mg ONCE ONE Administration Medical Decision Making Medical Decision Making [facility] Narrative: 48-year-old male presents for evaluation of atraumatic left leg pain. He denies any specific injury. He does have faint redness on exam with some tenderness to the left inner thigh. DVT, cellulitis around the differential. He has no white count, vital signs are stable. It is possible that he was bit by some insect of some sort when he was camping leading to an early cellulitis. Ultrasound of the left lower extremity is pending to evaluate for DVT. The distal extremities warm to the touch he has good pulses, I doubt ischemic limb. There was no trauma to suggest hematoma and compartment syndrome. The compartments are soft on exam as well. Differential Diagnosis Differential Diagnoses: The differential diagnosis associated with the presentation includes Left leg pain DVT Cellulitis Lymphangitis Muscle strain Radiology Impression Discussion of test interpretation with radiology: I have reviewed the radiologist's reading. Radiologist Impression: FINDINGS: Respiratory variation, normal compression and augmented flow are noted throughout the left lower extremity. The visualized common femoral vein, superficial femoral vein, profunda femoral vein, popliteal vein and midcalf peroneal and posterior tibial venous segments show no evidence of deep venous thrombosis. There is no Mirza's cyst. There are prominent left groin lymph nodes measuring up to 2.1 cm. US/US venous duplex LE LT IMPRESSION: No evidence of deep venous thrombosis involving the left lower extremity. Electronically signed by: Grayson Echevarria MD 12/29/2023 11:48 PM EDT Discharge Plan Discharge Clinical Impression: Cellulitis of left leg Patient Disposition: Home, Self-Care Instructions: Cellulitis (ED) Additional Instructions: Your ultrasound did not show any evidence of DVT. Your symptoms are likely related to a skin infection called cellulitis. You possibly acquire this while you were camping last weekend Take the antibiotic every 6 hours for the next week You may also apply warm compresses to the painful area Return for new or worsening symptoms Prescriptions: New cephalexin 500 mg capsule 500 mg PO QID Qty: 27 0RF Interventions: ED Discharge Assessment Last Done: 12/29/23 23:40 Discharge Date/Time: 12/29/23 23:40 Print Language: Hebrew
[2023-12-29 20:34] VITALS: BP 155/94; PULSE 70; RESP 16; TEMP 36.1; O2SAT 99
[2023-12-29] MEDS: cephALEXin 500 MG CAPSULE PO (23:36)
[2023-12-29 23:40] VITALS: BP 155/94; PULSE 70; RESP 16; TEMP 36.1; O2SAT 99
== END 2023-12-29 23:40 | disposition home or self-care (01) ==
PROVIDERS: Emergency Provider Emergency Medicine; PCP Internal Medicine
DX: L03.116 Cellulitis of left lower limb (principal); M79.652 Pain in left thigh; K21.9 Gastro-esophageal reflux disease without esophagitis
CPT/HCPCS: 93971; 99283; 99284

== ENCOUNTER 2024-08-30 10:45 | Outpatient (REF) | payer OTHER, SELFPAY ==
--- OUTSIDE RECORDS SUMMARY | 2024-04-02 04:15 | XMS_ITS ---
Author Organization Murray Muhammad MD Address [address] [place], [place] [phone] Care Team Providers Care Overnight Stocker Name Role Phone Murray Muhammad Primary Care Provider [phone] Allergies Allergen (clinical drug ingredient) Drug/Non Drug [...] Location Date Provider Diagnosis Murray Muhammad MD [address] [place] [address] Drive [address] [place] [phone] 04/02/2024 Murray Muhammad Migraine without aur a [...] current regiment Next Appt Details Provider Name:Murray De Jesus ier, 09/05/2024 08:30:00 AM, [address], [address], [place], [place], [phone], Progress Notes * DIANE SOLARESOB:[birth year] (48 yo M)Acc No.[id number]:04/02/2024 Progress Notes Patient: TAMMI DRUMMOND Provider: Girish Muhammad MD :1975 A ge:48 Y S ex:Male Date:04/02/2024 Address:[address] [facility], [place] [facility] Subjective: * Chief Complaints: * 6 month [...] Generated for Esther de anda/Cortney/Jacielitting on: 0 08/30/2024 11:12 AM EDT History and Physical Notes * [...]
[2024-08-30 10:48] LABS: MANUAL DIFF FLAG NO
[2024-08-30 10:55] LABS: Basophils Absolute Auto 0.1 X10*3/uL (0.0-0.2); Eosinophils Absolute Auto 0.2 X10*3/uL (0.0-0.4); Eosinophils Percent Auto 2.2 % (0-4); Hematocrit 44.7 % (42.0-52.0); Hemoglobin 15.2 g/dl (14.0-18.0); Imm Gran Abs Auto 0.03 X10*3/uL (0.00-0.03); Imm Gran Pct Auto 0.4 % (0.0-0.4); Lymphocytes Absolute Auto 2.7 X10*3/uL (1.2-4.9); Lymphocytes Percent Auto 34.9 % (20-40); Mean Corpuscular Hemoglobin 30.7 pg (27.0-33.0); Mean Corpuscular Volume 90.3 fL (80.0-98.0); Mean Platelet Volume 10.7 fL (9.4-12.4); Monocytes Absolute Auto 0.5 X10*3/uL (0.1-1.2); Monocytes Percent Auto 6.7 % (2-11); Neutrophils Absolute Auto 4.3 x10*3/uL (2.0-8.3); Neutrophils Percent Auto 54.8 % (45-73); Platelet Count 253 X10*3/uL (160-400); Red Blood Count 4.95 X10*6/uL (4.60-5.80); Red Cell Distribution Width 13.2 % (11.0-16.0); White Blood Count 7.8 X10*3/uL (4.8-10.8)
[2024-08-30 11:36] LABS: Alanine Aminotransferase 27 U/L (0-40); Albumin Level 4.2 g/dL (3.5-5.0); Alkaline Phosphatase 65 U/L (39-117); Anion Gap 11 (12-20); Aspartate Amino Transferase 26 U/L (5-37); Bilirubin Total 2.1 mg/dL (0.0-1.0); Blood Urea Nitrogen 23 mg/dL (9-16); Calcium 9.1 mg/dL (8.4-10.2); Carbon Dioxide 27 mmol/L (22-29); Chloride 104 mmol/L (96-108); Cholesterol 243 mg/dL (<200); Estimated Glomerular Filt Rate > 60; Glucose Fasting 88 mg/dL (60-99); HDL Cholesterol 56 mg/dL (>40); LDL Cholesterol Calculated 168 mg/dL (<100); Potassium 3.7 mmol/L (3.3-5.1); Sodium 138 mmol/L (135-145); Total Protein 7.2 g/dL (6.5-8.0); Triglycerides 96 mg/dL (<150)
== END 2024-08-30 10:46 | disposition home or self-care (01) ==
LOC: HO.LNP 10:45
PROVIDERS: Visit Provider Internal Medicine
DX: Z00.00 Encounter for general adult medical examination without abnormal findings (principal); I10 Essential (primary) hypertension; E78.00 Pure hypercholesterolemia, unspecified; Z12.5 Encounter for screening for malignant neoplasm of prostate
CPT/HCPCS: 80053; 80061; 84153; 85025

== ENCOUNTER 2024-10-07 10:32 | Outpatient (REF) | payer OTHER, SELFPAY ==
--- OUTSIDE RECORDS SUMMARY | 2024-10-07 02:45 | XMS_ITS ---
Author Organization Murray Muhammad MD Address [address] [place] [phone] Care Team Providers Care Sand Caster Apprentice Name Role Phone Murray Muhammad Primary Care Provider [phone] Results Component Value Reference Range Notes Blood Urea Nitrogen (Not yet reviewed by provider) Interpretation: Performing Lab:[address] [id number] Notes/Report: Blood Urea Nitrogen 16 9-16 mg/dL Creatinine (Not yet reviewe d by provider) Interpretation: Performing Lab:[facility], [address] [place] [phone] Notes/Report: Creatinine 0.95 0.5-1.4 mg/dL Estimated Glomerular Filt Rate > 60 Chronic Kidney Disease: Estimated GFR < 60 mL/min/1.73m2 Severe Kidney Disease: Estimated GFR < 15 mL/min/1.73m2 REASON FOR VISIT BUN, CREATININE Encounters Encounter Location Date Provider Diagnosis Murray Muhammad MD [address] [place] [phone] 10/07/2024 Murray Muhammad Elevated BUN R79.9 Assessments Encounter Date Diagnosis (ICD Code) Assessment Notes Treatment Notes Treatment Clinical Notes Section Notes 10/07/2024 Elevated BUN (ICD-10 - R79.9) Plan Of Treatment Pending Test Test Name Order Date Blood Urea Nitrogen 10/07/2024 Creatinine 10/07/2024 Next Appt Details Provider Name:Murray De Jesus ier, 03/10/2025 07:00:00 AM, [address] [facility], [address], [place], [place], [phone], Provider Name:Murray De Jesus ier, 09/02/2025 07:30:00 AM, [address] [place] [address] Drive, [address], [place], [place], [phone], Provider Name:Murray De Jesus ier, 09/09/2025 08:30:00 AM, [address] [place] [address], Suite [facility], [place], [place], [phone], Progress Notes * DIANE SOLARESOB:[birth year] (49 yo M)Acc No.[id number]:10/07/2024 Progress Note Patient: TAMMI DRUMMOND Provider: Girish Muhammad MD :1975 A ge:49 Y S ex:Male Date:10/07/2024 Address:[address] [place], [place] [phone] Subjective: * Chief Complaints: * 1 . BUN, CREATININE. * Medical History: Objective: * Vitals: Assessment: * Assessment: 1. E levated BUN - R79.9 Plan: * Treatment: * Procedure Codes: 3 6415 VENIPUNCT, ROUTINE* * * The named appointment provid er may or may not be the originator of this progress note, and it is not deemed complete until electronically signed by the appointment provider. Sign off status: Pending * Provider: Girish Muhammad MD Date: 10/07/2024 Generated for Esther de anda/Cortney/Jacielitting on: 10/07/2024 11:43 AM EDT
[2024-10-07 11:07] LABS: Blood Urea Nitrogen 16 mg/dL (9-16); Estimated Glomerular Filt Rate > 60
== END 2024-10-07 10:33 | disposition home or self-care (01) ==
LOC: HO.LNP 10:32
PROVIDERS: Visit Provider Internal Medicine
DX: R79.89 Other specified abnormal findings of blood chemistry (principal)
CPT/HCPCS: 82565; 84520

== ENCOUNTER → 2024-11-19 08:01 | Outpatient (REF) | payer OTHER, SELFPAY ==
--- OUTSIDE RECORDS SUMMARY | 2024-04-02 04:15 | XMS_ITS ---
Author Organization Murray Muhammad MD Address [address] [place], [place] [phone] Care Team Providers Care Steam And Power Supervisor Name Role Phone Murray Muhammad Primary Care Provider [phone] Allergies Allergen (clinical drug ingredient) Drug/Non Drug [...] Location Date Provider Diagnosis Murray Muhammad MD [address] [place] [address] [place] [phone] 04/02/2024 Murray Muhammad Migraine without aur a [...] regiment Next Appt Details Provider Name:Murray wilder, 03/10/2025 07:00:00 AM, [address] [place] [address], Suite [facility], [place], [place], [phone], Provider Name:Murray wilder, 09/02/2025 07:30:00 AM, [address] [place] [address], [address] [place] [address], [phone], Provider Name:Murray wilder, 09/09/2025 08:30:00 AM, [address] [place] [address], [facility] [place], [phone], Progress Notes * DIANE SOLARESOB:[birth year] (48 yo M)Acc No.[id number]:04/02/2024 Progress Notes Patient: TAMMI DRUMMOND Provider: Girish Muhammad MD :1975 A ge:48 Y S ex:Male Date:04/02/2024 Address:[address] [place], [place] [address] Subjective: * Chief Complaints: * 6 month [...] Date: 0 04/02/2024 Generated for Esther de anda/Cortney/Jacielitting on: 0 11/19/2024 08:26 AM EDT History and Physical Notes * HPI (History [...]
--- OUTSIDE RECORDS SUMMARY | 2024-07-02 07:30 | XMS_ITS ---
Author Organization Murray Muhammad MD Address 10 [facility] [address] [place] [phone] Care Team Providers Care Correctional Supervisor Name Role Phone Murray Muhammad Primary Care Provider REASON FOR VISIT kidney stone like pain Encounters Encounter Location Date Provider Diagnosis Murray Muhammad MD [address] [place] [address] [address] [place] [phone] 07/02/2024 Murray Muhammad Plan Of Treatment Next Appt Details Provider Name:Murray wilder, 03/10/2025 07:00:00 AM, [address] [place] [address], [address], [phone], Provider Name:Murray De Jesus ieriki, 09/02/2025 07:30:00 AM, [address] [place] [address], [address], [phone], Provider Name:Murray wilder, 09/09/2025 08:30:00 AM, [address] [place] [address], [address], [phone], Progress Notes * MUKESH SOLARES:[birth year] (49 yo M)Acc No.[id number]:07/02/2024 Patient: TAMMI DRUMMOND :1975 A ge:49 Y S ex:Male Address:[address] [place] [address] [place], [address] * true * Date: Generated for Esther de anda/Cortney/Keeleysmitting on: 0 11/19/2024 08:26 AM EDT
--- OUTSIDE RECORDS SUMMARY | 2024-08-30 03:00 | XMS_ITS ---
Author Organization Murray Muhammad MD Address [address] [place] [phone] Care Team Providers Care Embroidery Cutter Name Role Phone Murray Muhammad Primary Care Provider [phone] Results Component Value Reference Range Notes Complete Blood Count Auto Di ff Reviewed date:08/30/2024 04:39:12 PM Interpretation: Performing Lab:[facility], [address] [place] [phone] Notes/Report: White Blood Count 7.8 4.8-10.8 X10*3/uL [...] NRBC Abs Auto 0.000 0.0-0.012 X10*3/uL Comprehensive [place]. Panel Fa st Reviewed date:08/30/2024 04:37:16 PM Interpretation: Performing Lab:[facility], [address] [place] [phone] Notes/Report: Sodium 138 135-145 mmol/L Potassium 3.7 [...] Panel Reviewed date:08/30/2024 04:38:00 PM Interpretation: Performing Lab:[facility], [address] [place] [phone] Notes/Report: Triglycerides 96 <150 mg/dL Desirable Triglyceride: [...] (Free>4and<10) Reviewed date:08/30/2024 04:37:26 PM Interpretation: Performing Lab:[facility], [address] [place] [phone] Notes/Report: PSA,Total (Free>4and<10) 1.40 0.00-4.00 ng/mL A [...] Date Provider Diagnosis Murray Muhammad MD [address] [place], [place] [phone] 08/30/2024 Murray Muhammad Blood tests for rout [...] Appt Details Provider Name:Murray De Jesus ier, 03/10/2025 07:00:00 AM, [address], [address], [place], [place], [phone], Provider Name:Murray De Jesus ier, 09/02/2025 07:30:00 AM, [address], [address], [place], [place], [phone], Provider Name:Murray De Jesus ier, 09/09/2025 08:30:00 AM, [address], Suite [facility], [place], [place], [phone], Progress Notes * ABA SOLARESKEVINOB:[birth year] (49 yo M)Acc No.[id number]:08/30/2024 Progress Note Patient: TAMMI DRUMMOND Provider: Girish Muhammad MD :1975 A ge:49 Y S ex:Male Date:08/30/2024 Address:[address] [place], [place] [phone] Subjective: * Chief Complaints: * 1 . [...] - 08/30/2024 07:00 AM) L AB: Comprehensive [place]. Panel Fast (Collection Date & Time - 08/30/2024 07:00 AM) L AB: Lipid Panel (Collection Date & Time - 08/30/2024 07:00 AM) L AB: PSA,Total (Free>4and<10) (Collection Date & Time - 08/30/2024 07:00 AM) 3. H ypercholesterolemia L AB: Complete Blood Count Auto Diff (Collection Date & Time - 08/30/2024 07:00 AM) L AB: Comprehensive [place]. Panel Fast (Collection Date & Time - [...] 08/30/2024 Generated for Esther de anda/Cortney/Jacielitting on: 0 11/19/2024 08:27 AM EDT
--- OUTSIDE RECORDS SUMMARY | 2024-09-05 04:30 | XMS_ITS ---
Author Organization Murray Muhammad MD Address [address] [place] [phone] Care Team Providers Care Gear Cutting Machine Set Up Operator Name Role Phone Murray Muhammad Primary Care [...] kg/m2 09/05/2024 weight is down 6 pounds [facility] e 04-02-24 Encounters Encounter Location Date Provider Diagnosis Murray Muhammad MD [address] [facility] [address] [place], [place] [phone] 09/05/2024 Murray Muhammad Elevated BUN R79.9 ; [...] Test Test Name Order Date ECHO 09/05/2024 Future Test Test Name Order Date Lipid Panel 03/07/2025 Next Appt Details Provider Name:Murray De Jesus ier, 03/10/2025 07:00:00 AM, [address] [place] [address], [address], [place], [place], [phone], Provider Name:Murray De Jesus ier, 09/02/2025 07:30:00 AM, [address] [place] [address], Suite [facility], [place], [place], [phone], Provider Name:Murray De Jesus ier, 09/09/2025 08:30:00 AM, [address] [place] [address], Suite [facility], [place], [place], [phone], Progress Notes * DIANE SOLARESOB:[birth year] (49 yo M)Acc No.[id number]:09/05/2024 Progress Notes Patient: TAMMI DRUMMOND Provider: Girish Muhammad MD :1975 A ge:49 Y S ex:Male Date:09/05/2024 Address:[address] [place] [address] [address] [facility] Subjective: * Chief Complaints: * A nnual [...] Auto 0.000 0.0-0.012 - X10*3/uL L ab:Comprehensive [place]. Panel Fast (Order Date - 08/30/2024) (Collection [...] Counseling: C are goal follow-up plan: [place] joneseling for abnormal BMI provided?Yes, Travis michel Normal BMI Follow-up G wilmer encouragement to exercise. * * Sign off status: Completed true * Provider: Girish Muhammad MD Date: 0 09/05/2024 Generated for Esther de anda/Cortney/Lynnransmitting on: 0 11/19/2024 08:27 AM EDT History and Physical Notes * [...]
--- OUTSIDE RECORDS SUMMARY | 2024-10-07 02:45 | XMS_ITS ---
Author Organization Murray Muhammad MD Address [address] [place] [phone] Care Team Providers Care Flatbed Driver Name Role Phone Murray Muhammad Primary Care Provider [phone] Results Component Value Reference Range Notes Blood Urea Nitrogen Reviewed date:10/07/2024 12:39:12 PM Interpretation: Performing Lab:[address] [phone] Notes/Report: Blood Urea Nitrogen 16 9-16 mg/dL Creatinine Reviewed date:10/07/2024 12:45:51 PM Interpretation: Performing Lab:[facility], [address] [place] [phone] Notes/Report: Creatinine 0.95 0.5-1.4 mg/dL Estimated Glomerular Filt Rate > 60 Chronic Kidney Disease: Estimated GFR < 60 mL/min/1.73m2 Severe Kidney Disease: Estimated GFR < 15 mL/min/1.73m2 REASON FOR VISIT BUN, CREATININE Encounters Encounter Location Date Provider Diagnosis Murray Muhammad MD [address] [place] [phone] 10/07/2024 Murray Muhammad Elevated BUN R79.9 Assessments Encounter Date Diagnosis (ICD Code) Assessment Notes Treatment Notes Treatment Clinical Notes Section Notes 10/07/2024 Elevated BUN (ICD-10 - R79.9) Plan Of Treatment Next Appt Details Provider Name:Murray wilder, 03/10/2025 07:00:00 AM, [address], [address], [place], [place], [phone], Provider Name:Murray De Jesus ier, 09/02/2025 07:30:00 AM, [address], [address], [place], [place], [phone], Provider Name:Murray De Jesus ier, 09/09/2025 08:30:00 AM, [address] [facility], Suite [facility], [place], [place], [phone], Progress Notes * DIANE SOLARESOB:[birth year] (49 yo M)Acc No.[id number]:10/07/2024 Progress Note Patient: TAMMI DRUMMOND Provider: Girish Muhammad MD :1975 A ge:49 Y S ex:Male Date:10/07/2024 Address:[address] [place], [place] [phone] Subjective: * Chief Complaints: * 1 . [...] 10/07/2024 Generated for Esther de anda/Cortney/Jacielitting on: 0 11/19/2024 08:26 AM EDT
--- NOTE | 2024-11-19 08:03 | CA_ITS ---
Transthoracic Echocardiogram Amended Patient (Last, First, Middle): Domingo Villa L Gender: M Date of : 1975 Age: 49 Procedure Date: 11/19/2024 Procedure Type: Transthoracic Echocardiogram Location: OP Height: 180. cm Weight: 86.18 kg BSA: 2.06 m2 Heart Rate: 60 bpm BP: 160 / 90 mmHg Button Tufter: DIANA Referring MD: Murray Muhammad MD Sample Puller: Regino Kim MD Symptoms: Q23.1 BICUSPUD AV Study Quality: Adequate ECG Rhythm: Sinus Conclusions: - 1. Normal LV ejection fraction 55-60% 2. Bicuspid aortic valve with mild aortic regurgitation and early mild aortic stenosis 3. Mildly dilated ascending aorta at 3.7 cm 4. Normal RV systolic pressure 5. No pericardial effusion Findings Left Ventricle Normal left ventricular size, thickness, and systolic function. The visually estimated ejection fraction is between 55-60%. Spectral Doppler is indicative of a normal filling pattern. Right Ventricle Normal right ventricular cavity size and systolic function. Atria Both atria are normal in size. There is lipomatous hypertrophy of the interatrial septum. There is no evidence of interatrial shunt. Aortic Valve There is a bicuspid aortic valve. There is mild calcification of the aortic valve. There is mild thickening of the aortic valve. The peak aortic gradient is 13 mmHg.The mean gradient is 8 mmHg. The aortic valve area is 2.08 cm2. There is mild aortic valve regurgitation. Mitral Valve Normal mitral valve structure and function. There is trace mitral valve regurgitation. There is no mitral valve stenosis. Pulmonic Valve The pulmonic valve was not well visualized. Tricuspid Valve Likely normal tricuspid valve structure and function. There is trace tricuspid valve regurgitation. The right ventricular systolic pressure is normal. The right ventricular systolic pressure is 16 mmHg. Normal right atrial pressure. There is no evidence of pulmonary hypertension. Great Vessels The pulmonary artery was not well visualized. There is mild dilatation of the ascending aorta measuring 3.70 cm. Venous The inferior vena cava is normal in size and collapses greater than 50% with inspiration. Pericardium/Pleural There is no evidence of pericardial effusion. Prior Study Comparison No significant change compared to prior study dated: 10/03/2023. Measurements 2D Linear Measurements IVSd: 1.05 0.6-0.9/0.6-1.0 cm LVIDd: 4.93 3.9-5.3/4.2-5.9 cm LVIDd Index: 2.39 2.4-3.2/2.2-3.1 cm/m2 LVIDs: 3.84 2.0-3.6 cm LVPWd: 1.12 0.7-1.1 cm LA Diam: 3.30 2.7-3.8/3.0-4.0 cm LAIDs Index: 1.60 1.5-2.3 cm/m2 LV Mass: 247.61 67-162/88-224 g LV Mass Index: 120.20 43-95/49-115 g/m2 LVOT Diam: 2.30 3.0+(-)1.3 cm 2D Volumes LA Vol: 22.10 2D Systolic Function EF 4C: 58.10 >55% EF 2C: 57.00 >55% EF BiP: 56.30 >55% Mitral Valve MV Pk E: 0.75 MV PK A: 0.72 MV Decel Time: 269.00 E/A: 1.00 E'Lateral: 10.40 E'Medial: 8.38 E/E' Med: 9.00 E/E' Lat: 7.30 PHT: 79.00 MVA PHT: 2.78 Decel [place]: 2.80 Aortic Valve AoV Pk Lisandro: 1.82 AoV Mn Lisandro: 1.32 AoV VTI: 0.43 AoV Pk Grad: 13.00 Aov Mn Grad: 8.00 MAL Cont.VTI: 2.08 LVOT LVOT Pk Lisandro: 0.93 LVOT Mn Lisandro: 0.69 LVOT VTI: 0.21 LVOT Pk Grad: 3.00 LVOT Mn Grad: 2.00 LVOT Diam: 2.30 LVOT Area: 4.15 Diastolic Function MV Pk E: 0.75 MV Pk A: 0.72 E/A: 1.00 E'Medial: 8.38 E/E' Med: 9.00 E' Laterial: 10.40 E/E' Lat: 7.30 Right Ventricle TAPSE (mm): 18.00 TVS' Lisandro: 12.20 Tricuspid Valve TR Pk Lisandro: 1.82 TR Pk Grad: 13.00 RA Press: 3.00 RVSP: 16.00 Great Vessels Aorta Sinus of Valsalva: 3.70 2.0-3.5 cm Ao Asc: 3.70 2.1-3.4 cm Ao Arch: 3.00 Pulmonary Veins Pulm Vein S/D 1.30 Pulmonary Valve PV Pk Lisandro: 0.98 Peak PV Grad: 4.00 Updated in Other Vendor System with Status of Final Regino Kim MD electronically signed on 11/19/2024 3:33:04 PM with status of Final
--- OUTSIDE RECORDS SUMMARY | 2024-11-19 08:27 | XMS_ITS | Patient Health Record ---
Author Organization Murray Muhammad MD Address [address] [place], [place] [phone] Care Team Providers Care Office Machine Technician Name Role Phone Murray Muhammad Primary Care Provider Allergies Allergen (clinical drug ingredient) Drug/Non Drug Allergy documented on EMR Reaction Allergy Type Onset Date Status paroxetine Paxil (uncoded) tongue swelling Allergy Active sulfamethoxazole / trimethoprim bactrim (uncoded) rash Allergy Active Results Component Value Reference Range Notes Complete Blood Count Auto Di ff Reviewed date:08/30/2024 04:39:12 PM Interpretation: Performing Lab:[facility], [address] [place] [id number] Notes/Report: White Blood Count 7.8 4.8-10.8 X10*3/uL [...] NRBC Abs Auto 0.000 0.0-0.012 X10*3/uL Comprehensive [place]. Panel Fa st Reviewed date:08/30/2024 04:37:16 PM Interpretation: Performing Lab:[facility], [address] [place] [phone] Notes/Report: Sodium 138 135-145 mmol/L Potassium 3.7 [...] Panel Reviewed date:08/30/2024 04:38:00 PM Interpretation: Performing Lab:[address] [address] Notes/Report: Triglycerides 96 <150 mg/dL Desirable Triglyceride: [...] (Free>4and<10) Reviewed date:08/30/2024 04:37:26 PM Interpretation: Performing Lab:[address] [address] Notes/Report: PSA,Total (Free>4and<10) 1.40 0.00-4.00 ng/mL A [...] Mota Alinity i Chemiluminescent Microparticle Immunoassay (CMIA) Blood Urea Nitrogen Reviewed date:10/07/2024 12:39:12 PM Interpretation: Performing Lab:[address] [phone] Notes/Report: Blood Urea Nitrogen 16 9-16 mg/dL Creatinine Reviewed date:10/07/2024 12:45:51 PM Interpretation: Performing Lab:[facility], [address] [place] [address] Notes/Report: Creatinine 0.95 0.5-1.4 mg/dL Estimated Glomerular Filt Rate > 60 Chronic Kidney Disease: Estimated GFR < 60 mL/min/1.73m2 Severe Kidney Disease: Estimated GFR < 15 mL/min/1.73m2 US venous duplex LE LT Reviewed date:01/04/2024 08:16:31 AM Interpretation:CBACK 01/02/24 Performing Lab: Notes/Report: [address] [address] Ultrasound Report Signed Patient: Domingo Villa MR#: [id number] : 1975 Acct:[id number] Age/Sex: 48 / M ADM Date: 12/29/23 Loc: .ED Attending Dr: Ordering Physician: Domingo Funk Date of Service: 12/29/23 Procedure(s): US venous duplex LE LT Accession Number(s): [id number] cc: Murray Muhammad MD; Domingo Funk EXAMINATION: US TRIPLEX LOWER EXTREMITY, LEFT CLINICAL INFORMATION: Left lower extremity pain. COMPARISON: None available. TECHNIQUE: Color-flow triplex imaging with spectral analysis and compression Doppler were performed on the left lower extremity. FINDINGS: Respiratory variation, normal compression and augmented flow are noted throughout the left lower extremity. The visualized common femoral vein, superficial femoral vein, profunda femoral vein, popliteal vein and midcalf peroneal and posterior tibial venous segments show no evidence of deep venous thrombosis. There is no Mirza's cyst. There are prominent left groin lymph nodes measuring up to 2.1 cm. US/US venous duplex LE LT IMPRESSION: No evidence of deep venous thrombosis involving the left lower extremity. Electronically signed by: Grayson Echevarria MD 12/29/2023 11:48 PM EDT Dictated By: Grayson Echevarria MD Signed By: <Electronically signed by Grayson Echevarria MD in OV> 12/29/23 2348 DD/ 35 TD/TT: 12/29/232143 Addictions Counselor: [place] [address] Ultrasound Report Signed Patient: Domingo Villa MR#: [id number] : 1975 Acct:[id number] Age/Sex: 48 / M ADM Date: 12/29/23 Loc: HO.ED Attending Dr: Ordering Physician: Domingo Funk Date of Service: 12/29/23 Procedure(s): US susan ous duplex LE LT Accession Number(s): [id number] cc: Murray Muhammad MD; Domingo Funk EXAMINATION: US TRIPLEX LOWER EXTREMITY, LEFT CLINICAL INFORMATION: Left lower extremity pain. COMPARISON: None available. TECHNIQUE: Color-flow triplex imaging with spectral analysis and compression Doppler were perform ed on the left lower extremity. FINDINGS: Respiratory variatio n, normal compression and augmented flow are noted throughout the left lower extremity. The visualized common femoral vein, superficial femoral vein, profunda femoral vein, popliteal vein and midcalf peroneal and posterior tibial venous segments show no evidence of deep susan ous thrombosis. There is no Mirza's cyst. There are prominent left groin lymph nodes measuring up to 2.1 cm. US/US venous duplex LE LT IMPRESSION: No evidence of deep venous thrombosis involving the left lower extremity. Electronically coty d by: Grayson Echevarria MD 12/29/2023 11:48 PM EDT Dictated By: Grayson Echevarria MD Signed By: <Electronically signed by Grayson Echevarria MD in OV> 12/29/238 DD/ 35 TD/TT: 12/29/232143 Addictions Counselor: Reason For Referral No Information Medications Medication SIG (Take, Route, Frequency, Duration) [...] a day for 30 day(s) 11/07/2014 Not-Taking Immunizations Vaccine Route Administration Date Status Comme nts Flu Vaccine IM Intramuscular 11/19/2012 Administered Fluarix Quadrivalent IM Intramuscular 12/02/2014 Adminsindy red TDaP IM Intramuscular 09/04/2015 Administered Fluarix Quadrivalent Unknown 12/20/2016 Administered Le wis and David Fluarix Quadrivalent IM Intramuscular 01/11/2018 Adminsindy clark pt was given the vaccine at [facility]. Fluarix Quadrivalent IM Intramuscular 01/08/2019 Administe red TDaP Unknown 09/26/2019 Administered Given at ER for dog bite Fluarix Quadrivalent IM Intramuscular 01/30/2020 Administe red SARS-COV-2 Pfizer Unknown 05/13/2020 Administered SARS-COV-2 Pfizer Unknown 06/03/2020 Administered Fluarix Quadrivalent IM Intramuscular 12/27/2022 Administe red Fluarix Quadrivalent - 150 IM Intramuscular 01/02/2024 Administered Tetanus Unknown 09/04/2015 Pending Social History Tobacco Use: Social History Observation [...] ast year? No Points 0 Interpretation Negative Problems Problem Type SNOMED Code ICD Code Onset Dates Problem Status W/U Status Risk Notes Problem 318582167 Reflux esophagit is (K21.00) Active confirmed Problem 35666875 Calculus of gallbladder without cholecystitis without obstruction (K80.20) Active confirmed Problem 568792922 Mild intermitten t asthma without complication (J45.20) Active confirmed Problem 974537323 Labile hypertens ion (I10) Active confirmed Problem 834521554 Irregular heart beat (I49.9) Active confirmed Problem 770904732 Migraine without aura and without status migrainosus, not intractable (G43.009) Active confirmed Problem 8994653 Post herpetic neuralgia (B02.29) Active confirmed Problem 22202934 Bicuspid aortic valve (Q23.1) Active confirmed Problem 732525446 Esophageal erosi ons (K22.10) Active confirmed Problem 85963275 Elevated cholest gildardo (E78.00) Active confirmed Problem Hypercholesterolemia (31559863) Hypercholesterolemia (E78.00) Active confirmed Problem 81917712 TRENT (obstructive sleep apnea) (G47.33) Active confirmed Problem 80693161 Post-concussion headache (G44.309) Active confirmed Problem 78761646 Kidney stone on right side (N20.0) Active confirmed Problem 97306012 Gallbladder ston e without cholecystitis or obstruction (K80.20) Active confirmed Vital Signs Blood pressure diastolic 90 mm Hg 09/05/2024 ricky ght is down 6 pounds since 04-02-24 Height 71 in 09/05/2024 weight is down 6 pounds since 04-02-24 Blood pressure systolic 128 mm Hg 09/05/2024 weig ht is down 6 pounds since 04-02-24 Weight 195 lbs 09/05/2024 weight is down 6 pounds since 04-02-24 BMI 27.19 kg/m2 09/05/2024 weight is down 6 pounds since 04-02-24 Encounters Encounter Location Date Provider Diagnosis Murray Muhammad MD [address] [place] [id number] 08/30/2024 Murray Muhammad Blood tests for rout ine general physical examination Z00.00 ; Labile hypertension I10 and Hypercholesterolemia E78.00 Murray Muhammad MD [address] [place] [id number] 10/07/2024 Murray Muhammad Elevated BUN R79.9 Murray Muhammad MD [address] [place] [address] Drive [address] [place] [id number] 01/02/2024 Murray Muhammad Encounter for immuni zation Z23 and Neuropathic pain M79.2 Murray Muhammad MD [address] [place] [address] Drive [address] [place] [id number] 04/02/2024 Murray Muhammad Migraine without aur a and without status migrainosus, not intractable G43.009 ; Bicuspid aortic valve Q23.1 ; TRENT (obstructive sleep apnea) G47.33 and Labile hypertension I10 Murray Muhammad MD [address] [place], [place] [id number] 09/05/2024 Murray Muhammad Elevated BUN R79.9 ; Annual physical exam Z00.00 ; Hypercholesterolemia E78.00 ; Bicuspid aortic valve Q23.1 ; TRENT (obstructive sleep apnea) G47.33 ; Labile hypertension I10 and Melanocytic nevi of trunk D22.5 Murray Muhammad MD [address] [place] [id number] 07/02/2024 Murray Muhammad Assessments Encounter Date Diagnosis (ICD Code) Assessment Notes Treatment Notes Treatment Clinical Notes Section Notes 08/30/2024 Blood tests for rout ine general physical examination (ICD-10 - Z00.00) 10/07/2024 Elevated BUN (ICD-10 - R79.9) 01/02/2024 Encounter for immunization (ICD-10 - Z23) 01/02/2024 Neuropathic pain (IC D-10 - M79.2) is getting better so will observe. no signs of cellulitis so will stop ab. had negative ultrasoumd 04/02/2024 Migraine without aur a and without status migrainosus, not intractable (ICD-10 - G43.009) doing well, will continue current regiment 09/05/2024 Elevated BUN (ICD-10 - R79.9) stable, will continue to monitor, future labs ordered 09/05/2024 Annual physical exam (ICD-10 - Z00.00) labs reviewed and discussed with patient 08/30/2024 Labile hypertension (ICD-10 - I10) 04/02/2024 Bicuspid aortic valv e (ICD-10 - Q23.1) had echo unchanged 09/05/2024 Hypercholesterolemia (ICD-10 - E78.00) stable remain high,advised on diet, will continue to monitor future labs ordereed 08/30/2024 Hypercholesterolemia (ICD-10 - E78.00) 04/02/2024 TRENT (obstructive sle ep apnea) (ICD-10 - G47.33) waiting for sleep study 09/05/2024 Bicuspid aortic valv e (ICD-10 - Q23.1) pending diagnostic testing 04/02/2024 Labile hypertension (ICD-10 - I10) stable, will continue current regiment 09/05/2024 TRENT (obstructive sle ep apnea) (ICD-10 - G47.33) need notes from sleep medicine from this year/ needs to get study is going to call sleep medicine/ NOTES REQUESTED FROM [facility] 09/05/2024 Labile hypertension (ICD-10 - I10) gets good readings at home, will continue to monitor 09/05/2024 Melanocytic nevi of trunk (ICD-10 - D22.5) was evaluated by derm Plan Of Treatment Pending Test Test Name Order Date Electrocardiogram (EKG) 08/09/2018 Electrocardiogram (EKG) 05/28/2015 Electrocardiogram (EKG) 07/27/2017 XR GI SERIES 05/28/2015 ECHO 12/31/2019 ECHO 08/31/2023 ECHO 09/05/2024 CA echo transthoracic complete US renal RT 11/22/2021 Future Test Test Name Order Date ECHO 10/08/2021 CT ABD & PELVIS NO CONTRAST 12/03/2021 Next Appt Details Provider Name:Murray De Jesus ier, 03/10/2025 07:00:00 AM, [address] [place] [address], [address], [phone], Provider Name:Murray De Jesus ier, 09/02/2025 07:30:00 AM, [address] [place] [address], [address], [phone], Provider Name:Murray De Jesus ier, 09/09/2025 08:30:00 AM, [address] [place] [address], [address], [phone], Insurance Providers Payer Name Payer Address Payer Phone Subscriber Number Group Number Insured Name Patient Relationship to Insured Coverage Start Date Coverage End Date [facility] [address] [facility] [place] [phone] [id number] DOMINGO VILLA Self - patient is the insured Medical (General) History Medical History History ICD Code Needs echo every 2 yrs - don e 2015; done 08/03/17, done 10/08/19 echo 2023 unchanged Colonoscopy 02/01 pending biopsy tubular adenoma Surgical History Surgery Date(Month/Year)
== END ==
LOC: HO.CARD 08:01
PROVIDERS: PCP Internal Medicine; Visit Provider Internal Medicine
DX: Q23.1 Congenital insufficiency of aortic valve (principal)
CPT/HCPCS: 93306

== ENCOUNTER → 2024-11-19 08:03 | Outpatient (BNV) | payer OTHER, SELFPAY | PROVIDERS: PCP Internal Medicine; Visit Provider Internal Medicine Cardiovascular Disease | DX: Q23.81 Bicuspid aortic valve (principal); I35.2 Nonrheumatic aortic (valve) stenosis with insufficiency | CPT/HCPCS: 93306 ==

== ENCOUNTER 2025-03-10 10:43 | Outpatient (REF) | payer OTHER, SELFPAY ==
--- OUTSIDE RECORDS SUMMARY | 2024-01-02 10:30 | XMS_ITS ---
Author Organization Murray Muhammad MD Address [address] [place], [place] [phone] Care Team Providers Care Senior Marketing Analyst Name Role Phone Murray Muhammad Primary Care Provider Allergies Allergen (clinical drug ingredient) Drug/Non Drug Allergy documented on EMR Reaction Allergy Type Onset Date Status paroxetine Paxil (uncoded) tongue swelling Allergy Active sulfamethoxazole / trimethoprim bactrim (uncoded) rash Allergy Active REASON FOR VISIT ER VISIT/ CBACK US Medications Medication SIG (Take, Route, Frequency, Duration) Notes Start Date End Date Status Imitrex 50 MG 1 tablet at least 2 hours between doses as needed Orally Twice a day for migraine 08/26/2022 Active Albuterol Sulfate HFA 108 (90 Base) MCG/ACT 1 puff as needed Inhalation every 4 hrs for 30 days 08/25/2020 Not-Taking Propranolol HCl ER Beads 80 MG 1 capsule at bedtime Orally Once a day Not-Taking Flonase 50 MCG/ACT 1 spray in each nost ril Nasally Once a day for 30 day(s) 11/07/2014 Not-Taking Valtrex 1 GM 1 tablet Orally thre e times a day for 7 days 01/02/2017 Not-Takin g Immunizations Vaccine Route Administration Date Status Comme nts Fluarix Quadrivalent - 150 IM Intramuscular 01/02/2024 Adm inistered Vital Signs Blood pressure systolic 144 mm Hg 01/02/20 24 Blood pressure diastolic 82 mm Hg 024 Height 71 in 01/02/2024 Weight 202 lbs 01/02/2024 BMI 28.17 kg/m2 01/02/2024 Encounters Encounter Location Date Provider Diagnosis Murray Muhammad MD [address] [place] [address] [place] [phone] 01/02/2024 Murray Muhammad Encounter for immunization Z23 and Neuropathic pain M79.2 Assessments Encounter Date Diagnosis (ICD Code) Assessment Notes Treatment Notes Treatment Clinical Notes Section Notes 01/02/2024 Encounter for immunization (ICD-10 - Z23) 01/02/2024 Neuropathic pain (ICD-10 - M79.2) is getting better so will observe. no signs of cellulitis so will stop ab. had negative ultrasoumd Plan Of Treatment Treatment Notes Assessment Notes Neuropathic pain is getting better so will observe. no signs of cellulitis so will stop ab. had negative ultrasoumd Next Appt Details Provider Name:Murray wilder, 09/02/2025 07:30:00 AM, [address] [place] [address], Suite [facility], [place], [place], [phone], Provider Name:Murray wilder, 09/09/2025 08:30:00 AM, [address] [place] [address], Suite [facility], [place], [place], [phone], Progress Notes * DIANE SOLARESOB:[birth year] (48 yo M)Acc No.[id number]:01/02/2024 Patient: TAMMI DRUMMOND Provider: Girish Muhammad MD :1975 A ge:48 Y S ex:Male Date:01/02/2024 Address:[place] Subjective: * Chief Complaints: * E R VISIT/ CBACK US * HPI: S ymptom(s): patient is a 48 yo male here for follow up from recent ER visit, 3 days ago was going to go for a run and had pain in upper thigh and into groin. got worse all week. sharp burning pain. went to er and . pa thought it was cellulits and gave him ab but no redness. * ROS: G eneral/Constitutional: Denies C hills. D enies F atigue. D enies F ever. D enies H eadache. E NT: Patient denies d ecreased sense of smell , any loss of taste , sore throat. D enies S ore throat. R espiratory: Denies C ough. D enies S hortness of breath at rest. D enies S hortness of breath with exertion. G astrointestinal: Denies D iarrhea. D enies N ausea. M usculoskeletal: Patient denies m uscle aches. P eripheral Vascular: Patient denies r ed and blue toes. * Medical History: * Surgical History: * Hospitalization/Major Diagno stic Procedure: * Medications: T akingImitrex 50 MG Tablet 1 tablet at least 2 hours between doses as needed Orally Twice a day for migraineTaking Imitrex 50 MG Tablet 1 tablet at least 2 hours between doses as needed Orally Twice a day for migraineNot-Taking/PRNPropranolol HCl ER Beads 80 MG Capsule Extended Release 24 Hour 1 capsule at bedtime Orally Once a dayAlbuterol Sulfate HFA 108 (90 Base) MCG/ACT Aerosol Solution 1 puff as needed Inhalation every 4 hrsValtrex 1 GM Tablet 1 tablet Orally three times a dayFlonase 50 MCG/ACT Suspension 1 spray in each nostril Nasally Once a dayMedication List reviewed and reconciled with the patientNot-Taking/PRN Propranolol HCl ER Beads 80 MG Capsule Extended Release 24 Hour 1 capsule at bedtime Orally Once a dayNot-Taking/PRN Albuterol Sulfate HFA 108 (90 Base) MCG/ACT Aerosol Solution 1 puff as needed Inhalation every 4 hrsNot-Taking/PRN Valtrex 1 GM Tablet 1 tablet Orally three times a dayNot-Taking/PRN Flonase 50 MCG/ACT Suspension 1 spray in each nostril Nasally Once a dayMedication List reviewed and reconciled with the patient * Allergies: b actrim: rashPaxil: tongue swellingyes[Allergies Verified] Objective: * Vitals: H t: 71, Wt: 202, BMI:28.17, BP:144/82, Wt-k.63. * Examination: G eneral Examination: GENERAL APPEARANCE: a lert, well hydrated, in no distress.? MUSCULOSKELETAL: a bnormal with tenderness in inner upper thigh on the left. no enlarged nodes.. Assessment: * Assessment: 1. N europathic pain - M79.2 (Primary) 2 . E ncounter for immunization - Z23 Plan: * Treatment: * Immunizations: Fluarix Quadrivalent - 150 : 0.5 mL (Dose No:1) (Route: Intramuscular) given by Genie Gutiérrez on Right Deltoid * Procedure Codes: 9 0656 FLU VACCINE NO PRESERV 3 & >49812 IMMUNIZATION ADMIN * * Sign off status: Completed true * Provider: Girish Muhammad MD Date: 1 Generated for Esther de anda/Cortney/Keeleysmitting on: 12:19 PM EST History and Physical Notes * HPI (History of Present Illness) Category Sub-Category Detail Notes Category Not es Symptom(s) patient is a 48 yo male here for follow up from recent ER visit, 3 days ago was going to go for a run and had pain in upper thigh and into groin. got worse all week. sharp burning pain. went to er and . pa thought it was cellulits and gave him ab but no redness Examination Category Sub-Category Detail Notes Category Not es General Examination GENERAL APPEARANCE: alert, w ell hydrated, in no distress MUSCULOSKELETAL: abnormal with tender ness in inner upper thigh on the left. no enlarged nodes.
--- OUTSIDE RECORDS SUMMARY | 2024-04-02 03:15 | XMS_ITS ---
Author Organization Murray Muhammad MD Address [address] [place], [place] [phone] Care Team Providers Care Head School Custodian Name Role Phone Murray Muhammad Primary Care Provider Allergies Allergen (clinical drug ingredient) Drug/Non Drug Allergy documented on EMR Reaction Allergy Type Onset Date Status paroxetine Paxil (uncoded) tongue swelling Allergy Active sulfamethoxazole / trimethoprim bactrim (uncoded) rash Allergy Active REASON FOR VISIT 6 month Medications Medication SIG (Take, Route, Frequency, Duration) Notes Start Date End Date Status Flonase 50 MCG/ACT 1 spray in each nost ril Nasally Once a day for 30 day(s) 11/07/2014 Not-Taking Valtrex 1 GM 1 tablet Orally thre e times a day for 7 days 01/02/2017 Not-Takin g Imitrex 50 MG 1 tablet at least 2 hours between doses as needed Orally Twice a day for migraine for 30 days 08/26/2022 Active Propranolol HCl ER Beads 80 MG 1 capsule at bedtime Orally Once a day Active Albuterol Sulfate HFA 108 (90 Base) MCG/ACT 1 puff as needed Inhalation every 4 hrs for 30 days 08/25/2020 Not-Taking Vital Signs Blood pressure systolic 138 mm Hg 04/02/19 25 Blood pressure diastolic 82 mm Hg 025 Height 71 in 04/02/2024 Weight 201 lbs 04/02/2024 BMI 28.03 kg/m2 04/02/2024 Encounters Encounter Location Date Provider Diagnosis Murray Muhammad MD [address] [place] [address] Drive [address] [place] [phone] 04/02/2024 Murray Muhammad Migraine without aur a and without status migrainosus, not intractable G43.009 ; Bicuspid aortic valve Q23.1 ; TRENT (obstructive sleep apnea) G47.33 and Labile hypertension I10 Assessments Encounter Date Diagnosis (ICD Code) Assessment Notes Treatment Notes Treatment Clinical Notes Section Notes 04/02/2024 Migraine without aura and without status migrainosus, not intractable (ICD-10 - G43.009) doing well, will continue current regiment 04/02/2024 Bicuspid aortic valve (ICD-10 - Q23.1) had echo unchanged 04/02/2024 TRENT (obstructive sleep apnea) (ICD-10 - G47.33) waiting for sleep study 04/02/2024 Labile hypertension (ICD-10 - I10) stable, will continue current regiment Plan Of Treatment Medication Medication Name Sig Start Date Stop Date Notes Imitrex 50 MG 1 tablet at least 2 hours between doses as needed Orally Twice a day for migraine for 30 days 08/26/2022 Propranolol HCl ER Beads 80 MG 1 capsule at bedtime Orally Once a day Treatment Notes Assessment Notes Migraine without aura and wi thout status migrainosus, not intractable doing well, will continue current regiment Bicuspid aortic valve had echo unchanged TRENT (obstructive sleep apnea) waiting fo r sleep study Labile hypertension stable, will continu e current regiment Next Appt Details Provider Name:Murray wilder, 09/02/2025 07:30:00 AM, [address] [place] [address] Drive, [address], [place], [place], [phone], Provider Name:Murray wilder, 09/09/2025 08:30:00 AM, [address] [place] [address], Suite [facility], [place], [place], [phone], Progress Notes * MUKESH SOLARES:[birth year] (48 yo M)Acc No.[id number]:04/02/2024 Progress Notes Patient: TAMMI DRUMMOND Provider: Girish Muhammad MD :1975 A ge:48 Y S ex:Male Date:04/02/2024 [facility] [facility] Subjective: * Chief Complaints: * 6 month * HPI: S ymptom(s): patient is a 48 yo male here for 6month follow up visit. * ROS: G eneral/Constitutional: Denies C hills. [...] needed Orally Twice a day for migraine Taking Imitrex 50 MG Tablet 1 tablet at least 2 hours between doses as needed Orally Twice a day for migraine Not- Taking/PRNPropranolol HCl ER Beads 80 MG Capsule Extended Release 24 Hour 1 capsule at bedtime Orally Once a day Albuterol Sulfate HFA 108 (90 Base) MCG/ACT Aerosol Solution 1 puff as needed Inhalation every 4 hrs Valtrex 1 GM Tablet 1 tablet Orally three times a day Flonase 50 MCG/ACT Suspension 1 spray in each nostril Nasally Once a day Medication List reviewed and reconciled with the patientNot-Taking/PRN Propranolol HCl ER Beads 80 MG Capsule Extended Release 24 Hour 1 capsule at bedtime Orally Once a day Not-Taking/PRN Albuterol Sulfate HFA 108 (90 Base) MCG/ACT Aerosol Solution 1 puff as needed Inhalation every 4 hrs Not-Taking/PRN Valtrex 1 GM Tablet 1 tablet Orally three times a day Not-Taking/PRN Flonase 50 MCG/ACT Suspension 1 spray in each nostril Nasally Once a day Medication List reviewed and reconciled with the patient * Allergies: b actrim: rashPaxil: tongue swellingyes[Allergies Verified] Objective: * Vitals: H t: 71, Wt:201, BMI:28.03, BP:138/82. * Examination: G eneral Examination: GENERAL APPEARANCE: a lert, well hydrated, in no distress.? HEAD: n ormocephalic. SKIN: g ood turgor. HEART: r egular rate and rhythm , no murmurs, rubs, gallops. LUNGS: n o wheezes, rales, rhonchi , good air movement , clear to auscultation bilaterally. Assessment: * Assessment: 1. M igraine without aura and without status migrainosus, not intractable - G43.009 ?2. B icuspid aortic valve - Q23.1 3 . O SA (obstructive sleep apnea) - G47.33 4 . L abile hypertension - I10 Plan: * Treatment: 2. B icuspid aortic valve Notes: had echo unchanged 3. O SA (obstructive sleep apnea) Notes: waiting for sleep study 4. L abile hypertension Continue Propranolol HCl ER Beads Capsule Extended Release 24 Hour, 80 MG, 1 capsule at bedtime, Orally, Once a day. Notes: stable, will continue current regiment * Procedure Codes: * * Sign off status: Completed true * Provider: Girish Muhammad MD Date: 0 04/02/2024 Generated for Esther de anda/Cortney/Keeleysmitting on: 1 12:17 PM EST History and Physical Notes * HPI (History of Present Illness) Category Sub-Category Detail Notes Category Not es Symptom(s) patient is a 48 yo male here for 6month follow up visit. Examination Category Sub-Category Detail Notes Category Not es General Examination GENERAL APPEARANCE: alert, w ell hydrated, in no distress HEAD: normocephalic HEART: regular rate and rhy thm , no murmurs, rubs, gallops LUNGS: no wheezes, rales, r honchi , good air movement , clear to auscultation bilaterally SKIN: good turgor
--- OUTSIDE RECORDS SUMMARY | 2024-07-02 06:30 | XMS_ITS ---
Author Organization Murray Muhammad MD Address 10 [facility] [address] [place] [phone] Care Team Providers Care Health And Safety Inspector Name Role Phone Murray Muhammad Primary Care Provider REASON FOR VISIT kidney stone like pain Encounters Encounter Location Date Provider Diagnosis Murray Muhammad MD [address] [place] [address] [address] [place] [phone] 07/02/2024 Murray Muhammad Plan Of Treatment Next Appt Details Provider Name:Murray wilder, 09/02/2025 07:30:00 AM, [address] [place] [address], [address], [phone], Provider Name:Murray wilder, 09/09/2025 08:30:00 AM, [address] [place] [address], [phone], Progress Notes * DIANE SOLARESOB:[birth year] (49 yo M)Acc No.[id number]:07/02/2024 Patient: TAMMI DRUMMOND :1975 A ge:49 Y S ex:Male Address: [address], [place], [address] * true * Date: Generated for Esther de anda/Cortney/Sherif on: 12:18 PM EST
--- OUTSIDE RECORDS SUMMARY | 2024-08-30 02:00 | XMS_ITS ---
Author Organization Murrya Muhammad MD Address [address] [place] [phone] Care Team Providers Care Polymerization Oven Tender Name Role Phone Murray Muhammad Primary Care Provider Results Component Value Reference Range Notes Complete Blood Count Auto Di ff Reviewed date:08/30/2024 04:39:12 PM Interpretation: Performing Lab:[facility], [address] [place] [phone] Notes/Report: White Blood Count 7.8 4.8-10.8 X10*3/uL Red Blood Count 4.95 4.60-5.80 X10*6/uL Hemoglobin 15.2 14.0-18.0 g/dl Hematocrit 44.7 42.0-52.0 % Mean Corpuscular Volume 90.3 80.0-98.0 fL Mean Corpuscular Hemoglobin 30.7 27.0-33.0 pg Mean Corpuscular HGB Conc 34.0 31.0-36.0 g/dl Red Cell Distribution Width 13.2 11.0-16.0 % Platelet Count 253 160-400 X10*3/uL Mean Platelet Volume 10.7 9.4-12.4 fL Neutrophils Percent Auto 54.8 45-73 % Imm Gran Pct Auto 0.4 0.0-0.4 % Lymphocytes Percent Auto 34.9 20-40 % Monocytes Percent Auto 6.7 2-11 % Eosinophils Percent Auto 2.2 0-4 % Basophils Percent Auto 1.0 0-2 % NRBC Pct Auto 0.0 0.0-0.2 /100WBC Neutrophils Absolute Auto 4.3 2.0-8.3 x10*3/u L Imm Gran Abs Auto 0.03 0.00-0.03 X10*3/uL Lymphocytes Absolute Auto 2.7 1.2-4.9 X10*3/u L Monocytes Absolute Auto 0.5 0.1-1.2 X10*3/uL Eosinophils Absolute Auto 0.2 0.0-0.4 X10*3/u L Basophils Absolute Auto 0.1 0.0-0.2 X10*3/uL NRBC Abs Auto 0.000 0.0-0.012 X10*3/uL Comprehensive [place]. Panel Fa st Reviewed date:08/30/2024 04:37:16 PM Interpretation: Performing Lab:[facility], [address] [place] [phone] Notes/Report: Sodium 138 135-145 mmol/L Potassium 3.7 3.3-5.1 mmol/L Chloride 104 96-108 mmol/L Carbon Dioxide 27 22-29 mmol/L Anion Gap 11 12-20 Blood Urea Nitrogen 23 9-16 mg/dL Creatinine 1.16 0.5-1.4 mg/dL Estimated Glomerular Filt Rate > 60 Chronic Kidney Disease: Estimated GFR < 60 mL/min/1.73m2 Severe Kidney Disease: Estimated GFR < 15 mL/min/1.73m2 Glucose Fasting 88 60-99 mg/dL Calcium 9.1 8.4-10.2 mg/dL Bilirubin Total 2.1 0.0-1.0 mg/dL Slight Icte kira. Aspartate Amino Transferase 26 5-37 U/L Alanine Aminotransferase 27 0-40 U/L Total Protein 7.2 6.5-8.0 g/dL Albumin Level 4.2 3.5-5.0 g/dL Alkaline Phosphatase 65 39-117 U/L Lipid Panel Reviewed date:08/30/2024 04:38:00 PM Interpretation: Performing Lab:[facility], [address] [place] [phone] Notes/Report: Triglycerides 96 <150 mg/dL Desirable Triglyceride: less than 150 mg/dL Borderline High Triglyceride 150-199 mg/dL High Triglyceride: 200-499 mg/dL Very High Triglyceride: greater than or equal to 5OO mg/dL Cholesterol 243 <200 mg/dL Desirable Cholesterol: less than 200 mg/dL Borderline High Cholesterol: 200-239 mg/dL High Cholesterol: greater than 239 mg/dL LDL Cholesterol Calculated 168 <100 mg/dL Desirable LDL: less than 100 mg/dL Near Optimal/Above Optimal LDL: 110-129 mg/dL Borderline High LDL: 130-159 mg/dL High LDL: 160-189 mg/dL Very High LDL: greater than or equal to 190 mg/dL HDL Cholesterol 56 >40 mg/dL Desirable HDL: greater than 40 mg/dL Note: This HDL assay may give artificially low results in patients with liver disease. PSA,Total (Free>4and<10) Reviewed date:08/30/2024 04:37:26 PM Interpretation: Performing Lab:[facility], [address] [place] [phone] Notes/Report: PSA,Total (Free>4and<10) 1.40 0.00-4.00 ng/mL A Free PSA was not performed: The percentage of Free PSA can be used to enhance the differentiation of prostate cancer from benign prostatic disease in subjects whose PSA levels are between 4.0 and 10.0 ng/mL. For subjects whose PSA levels are below 4.0 or above 10.0 ng/mL, the risk of prostate cancer is determined on the basis of the PSA alone. Therefore the % Free PSA is recommended only for those subjects whose PSA levels are between 4.0 and 10.0 ng/mL. PSA methodology: Mota Alinity i Chemiluminescent Microparticle Immunoassay (CMIA) REASON FOR VISIT yearly fasting labs Encounters Encounter Location Date Provider Diagnosis Murray Muhammad MD [address] [facility] [address] [facility] [address] [place], [place] [phone] 08/30/2024 Murray Muhammad Blood tests for rout ine general physical examination Z00.00 ; Labile hypertension I10 and Hypercholesterolemia E78.00 Assessments Encounter Date Diagnosis (ICD Code) Assessment Notes Treatment Notes Treatment Clinical Notes Section Notes 08/30/2024 Blood tests for rout ine general physical examination (ICD-10 - Z00.00) 08/30/2024 Labile hypertension (ICD-10 - I10) 08/30/2024 Hypercholesterolemia (ICD-10 - E78.00) Plan Of Treatment Next Appt Details Provider Name:Murray De Jesus ier, 09/02/2025 07:30:00 AM, [address], [address], [place], [place], [phone], Provider Name:Murray De Jesus ier, 09/09/2025 08:30:00 AM, [address], [address], [place], [place], [phone], Progress Notes * DIANE SOLARESOB:[birth year] (49 yo M)Acc No.[id number]:08/30/2024 Progress Note Patient: TAMMI DRUMMOND Provider: Girish Muhammad MD :1975 A ge:49 Y S ex:Male Date:08/30/2024 Address:[address] [place], [place] [phone] Subjective: * Chief Complaints: * 1 . Yearly fasting labs. * Medical History: Objective: * Vitals: Assessment: * Assessment: 1. B lood tests for routine general physical examination - Z00.00 (Primary) 2 .?Labile hypertension - I10 3 . H ypercholesterolemia - E78.00 ? Plan: * Treatment: 2. L abile hypertension L AB: Complete Blood Count Auto Diff (Collection Date & Time - 08/30/2024 07:00 AM) L AB: Comprehensive [place]. Panel Fast (Collection Date & Time - 08/30/2024 07:00 AM) L AB: Lipid Panel (Collection Date & Time - 08/30/2024 07:00 AM) L AB: PSA,Total (Free>4and<10) (Collection Date & Time - 08/30/2024 07:00 AM) 3. H ypercholesterolemia L AB: Complete Blood Count Auto Diff (Collection Date & Time - 08/30/2024 07:00 AM) L AB: Comprehensive [place]. Panel Fast (Collection Date & Time - 08/30/2024 07:00 AM) L AB: Lipid Panel (Collection Date & Time - 08/30/2024 07:00 AM) L AB: PSA,Total (Free>4and<10) (Collection Date & Time - 08/30/2024 07:00 AM) * Procedure Codes: 3 6415 VENIPUNCT, ROUTINE* * * The named appointment provid er may or may not be the originator of this progress note, and it is not deemed complete until electronically signed by the appointment provider. Sign off status: Pending * Provider: Girish Muhammad MD Date: 0 08/30/2024 Generated for Esther de anda/Cortney/Jacielitting on: 1 12:18 PM EST
--- OUTSIDE RECORDS SUMMARY | 2024-09-05 03:30 | XMS_ITS ---
Author Organization Murray Muhammad MD Address [address] [place] [phone] Care Team Providers Care Skin Specialist Name Role Phone Murray Muhammad Primary Care Provider Allergies Allergen (clinical drug ingredient) Drug/Non Drug Allergy documented on EMR Reaction Allergy Type Onset Date Status paroxetine Paxil (uncoded) tongue swelling Allergy Active sulfamethoxazole / trimethoprim bactrim (uncoded) rash Allergy Active REASON FOR VISIT annual appt Medications Medication SIG (Take, Route, Frequency, Duration) Notes Start Date End Date Status Imitrex 50 MG 1 tablet at least 2 hours between doses as needed Orally Twice a day for migraine for 30 days 08/26/2022 Active Propranolol HCl ER Beads 80 MG 1 capsule at bedtime Orally Once a day Not-Taking Albuterol Sulfate HFA 108 (90 Base) MCG/ACT 1 puff as needed Inhalation every 4 hrs for 30 days 08/25/2020 Not-Taking Valtrex 1 GM 1 tablet Orally thre e times a day for 7 days 01/02/2017 Not-Takin g Flonase 50 MCG/ACT 1 spray in each nost ril Nasally Once a day for 30 day(s) 11/07/2014 Not-Taking Social History Tobacco Use: Social History Observation Description Date Details (start date - stop date) Never Smoker NA - NA Tobacco Use/Smoking Question Answer Notes Patient is a nonsmoker Additional Findings: Tobacco Non-User Cu rrent non-smoker, currently using no form of tobacco Alcohol Screen Question Answer Notes Did you have a drink containing alcohol in the p ast year? No Points 0 Interpretation Negative Vital Signs Blood pressure systolic 128 mm Hg 09/06/19 25 Blood pressure diastolic 90 mm Hg 025 Height 71 in 09/05/2024 Weight 195 lbs 09/05/2024 BMI 27.19 kg/m2 09/05/2024 weight is down 6 pounds [facility] e 04-02-24 Encounters Encounter Location Date Provider Diagnosis Murray Muhammad MD [address] [facility] [address] [place], [place] [phone] 09/05/2024 Murray Muhammad Elevated BUN R79.9 ; Annual physical exam Z00.00 ; Hypercholesterolemia E78.00 ; Bicuspid aortic valve Q23.1 ; TRENT (obstructive sleep apnea) G47.33 ; Labile hypertension I10 and Melanocytic nevi of trunk D22.5 Assessments Encounter Date Diagnosis (ICD Code) Assessment Notes Treatment Notes Treatment Clinical Notes Section Notes 09/05/2024 Elevated BUN (ICD-10 - R79.9) stable, will continue to monitor, future labs ordered 09/05/2024 Annual physical exam (ICD-10 - Z00.00) labs reviewed and discussed with patient 09/05/2024 Hypercholesterolemia (ICD-10 - E78.00) stable remain high,advised on diet, will continue to monitor future labs ordereed 09/05/2024 Bicuspid aortic valv e (ICD-10 - Q23.1) pending diagnostic testing 09/05/2024 TRENT (obstructive sle ep apnea) (ICD-10 - G47.33) need notes from sleep medicine from this year/ needs to get study is going to call sleep medicine/ NOTES REQUESTED FROM SLEEP MED SERVICES 09/05/2024 Labile hypertension (ICD-10 - I10) gets good readings at home, will continue to monitor 09/05/2024 Melanocytic nevi of trunk (ICD-10 - D22.5) was evaluated by derm Plan Of Treatment Treatment Notes Assessment Notes Elevated BUN stable, will continu e to monitor, future labs ordered Annual physical exam labs reviewed and d iscussed with patient Hypercholesterolemia stable remain high, advised on diet, will continue to monitor future labs ordereed Bicuspid aortic valve pending diagnostic testing TRENT (obstructive sleep apnea) need notes from sleep medicine from this year/ needs to get study is going to call sleep medicine/ NOTES REQUESTED FROM SLEEP MED SERVICES Labile hypertension gets good readings a t home, will continue to monitor Melanocytic nevi of trunk was evaluated by derm Pending Test Test Name Order Date ECHO 09/05/2024 Lipid Panel 09/05/2024 Next Appt Details Provider Name:Murray Holliday Neal ier, 09/02/2025 07:30:00 AM, [address], [address], [place], [place], [phone], Provider Name:Murray Holliday Neal ier, 09/09/2025 08:30:00 AM, [address] [facility], [address], [place], [place], [phone], Progress Notes * ABA SOLARESKEVINOB:[birth year] (49 yo M)Acc No.[id number]:09/05/2024 Progress Notes Patient: TAMMI DRUMMOND Provider: Girish Muhammad MD :1975 A ge:49 Y S ex:Male Date:09/05/2024 Address:[address] [place] [address] [facility] Subjective: * Chief Complaints: * A nnual appt * HPI: D epression Screening: PHQ-9 L ittle interest or pleasure in doing things N ot at all, F eeling down, depressed, or hopeless N ot at all, T rouble falling or staying asleep, or sleeping too much N ot at all, F eeling tired or having little energy N ot at all, P oor appetite or overeating N ot at all, F eeling bad about yourself or that you are a failure, or have let yourself or your family down N ot at all, T rouble concentrating on things, such as reading the newspaper or watching television N ot at all, M oving or speaking so slowly that other people could have noticed; or the opposite, being so fidgety or restless that you have been moving around a lot more than usual N ot at all, T houghts that you would be better off or of hurting yourself in some way N ot at all, T otal Score 0 . I nterpretation and Intervention D epression Screening Findings N egative, F ollow-Up for Depression : review of PHQ-9 found negative result, no follow-up needed. C ommunication Needs: Communication Needs D oes the patient have a hearing impairment N o, D oes the patient have a vision impairment? Y es, I f yes, what is the vision impairment? C ontact Lenses, D oes the patient have a cognition impairment? N o. S RENETTA Questions: SDOH Questions I n the past year have you been worried about losing housing? N o, I n the past year have you or any family members you live with been unable to get any of the following when it was really needed? Check all that apply: N one. S ymptom(s): patient is a 49 yo male here for annual visit with review of recent labs and follow up of chronic issues. * ROS: G eneral/Constitutional: Change in appetite d enies. C hills d enies. F ever d enies. O phthalmologic: Blurred vision d enies. D ischarge d enies. P ain d enies. E NT: Decreased hearing d enies. S ore throat d enies.?Swollen glands d enies. E ndocrine: Cold intolerance d enies. E xcessive thirst d enies. H eat intolerance d enies. W eight loss d enies. R espiratory: Cough d enies. S hortness of breath at rest d enies. S hortness of breath with exertion d enies. W heezing d enies. C ardiovascular: Chest pain at rest d enies. C hest pain with exertion?denies. I rregular heartbeat d enies. S hortness of breath d enies. ? G astrointestinal: Abdominal pain d enies. C hange in bowel habits d enies. D iarrhea d enies. N ausea d enies. R ectal bleeding d enies. V omiting d enies . G enitourinary: Blood in urine d enies. D ifficulty urinating d enies. F requent urination d enies. M usculoskeletal: Painful joints d enies. W eakness d enies. ? S kin: Dry skin d enies. I tching d enies. D enies?Mole(s), changes in moles, new moles or any lesions of concern. D enies P hotosensitivity. R abdirahman d enies. N eurologic: Dizziness d enies. F ainting d enies. H eadache?denies. * Medical History: * Surgical History: * Hospitalization/Major Diagno stic Procedure: * Family History: F ather: alive 79 yrs, hypertension, hyperlipidemia. M other: alive 77 yrs. 1 brother(s) , 1 sister(s) . 2 son(s) . . Denies mental health/substance abuse family history, Denies mental health/substance abuse family history, Denies mental health/substance abuse family history. * Social History: T obacco Use: T obacco Use/Smoking P atient is a n onsmoker, A dditional Findings: Tobacco Non-User C urrent non-smoker, currently using no form of tobacco. D rugs/Alcohol: A lcohol Screen D id you have a drink containing alcohol in the past year? N o, P oints 0 , I nterpretation N egative. M iscellaneous: C affeine: yes, 1-2 cups per day energy drink. Children: yes. Community involvements: no. Exercise: yes, runs 2 miles QOD. Housing: owning. Living with: spouse, and kids. Marital status: . Occupation: works full-time. Pets: cats x3. Travel outside of the [place]: no. * Medications: T akingImitrex 50 MG Tablet [...] Objective: * Vitals: H t: 71, Wt: 195, BMI:27.19, BP:128/90, Repeat BP:150/100, Wt-k.45. weight is down 6 pounds since 04-02-24. * P ast Orders: L ab:Complete Blood Count Auto Diff (Order Date - 08/30/2024) (Collection Date & Time - 08/30/2024 07:00 AM) Value Reference Range White Blood Count 7.8 4.8-10.8 - X10*3/uL Red Blood Count 4.95 4.60-5.80 - X10*6/uL Hemoglobin 15.2 14.0-18.0 - g/dl Hematocrit 44.7 42.0-52.0 - % Mean Corpuscular Volume 90.3 80.0-98.0 - fL Mean Corpuscular Hemoglobin 30.7 27.0-33.0 - pg Mean Corpuscular HGB Conc 34.0 31.0-36.0 - g/ dl Red Cell Distribution Width 13.2 11.0-16.0 - % Platelet Count 253 160-400 - X10*3/uL Mean Platelet Volume 10.7 9.4-12.4 - fL Neutrophils Percent Auto 54.8 45-73 - % Imm Gran Pct Auto 0.4 0.0-0.4 - % Lymphocytes Percent Auto 34.9 20-40 - % Monocytes Percent Auto 6.7 2-11 - % Eosinophils Percent Auto 2.2 0-4 - % Basophils Percent Auto 1.0 0-2 - % NRBC Pct Auto 0.0 0.0-0.2 - /100WBC Neutrophils Absolute Auto 4.3 2.0-8.3 - x10* 3/uL Imm Gran Abs Auto 0.03 0.00-0.03 - X10*3/uL Lymphocytes Absolute Auto 2.7 1.2-4.9 - X10* 3/uL Monocytes Absolute Auto 0.5 0.1-1.2 - X10*3/ uL Eosinophils Absolute Auto 0.2 0.0-0.4 - X10* 3/uL Basophils Absolute Auto 0.1 0.0-0.2 - X10*3/ uL NRBC Abs Auto 0.000 0.0-0.012 - X10*3/uL L ab:Comprehensive [place]. Panel Fast (Order Date - 08/30/2024) (Collection Date & Time - 08/30/2024 07:00 AM) Value Reference Range Sodium 138 135-145 - mmol/L Bilirubin Total 2.1 H 0.0-1.0 - mg/dL Aspartate Amino Transferase 26 5-37 - U/L Alanine Aminotransferase 27 0-40 - U/L Total Protein 7.2 6.5-8.0 - g/dL Albumin Level 4.2 3.5-5.0 - g/dL Alkaline Phosphatase 65 39-117 - U/L Potassium 3.7 3.3-5.1 - mmol/L Chloride 104 96-108 - mmol/L Carbon Dioxide 27 22-29 - mmol/L Anion Gap 11 L 12-20 - Blood Urea Nitrogen 23 H 9-16 - mg/dL Creatinine 1.16 0.5-1.4 - mg/dL Estimated Glomerular Filt Rate > 60 - Glucose Fasting 88 60-99 - mg/dL Calcium 9.1 8.4-10.2 - mg/dL L ab:Lipid Panel (Order Date - 08/30/2024) (Collection Date & Time - 08/30/2024 07:00 AM) Value Reference Range Triglycerides 96 <150 - mg/dL Cholesterol 243 H <200 - mg/dL LDL Cholesterol Calculated 168 H <100 - mg/dL HDL Cholesterol 56 >40 - mg/dL L ab:PSA,Total (Free>4and<10) (Order Date - 08/30/2024) (Collection Date & Time - 08/30/2024 07:00 AM) Value Reference Range PSA,Total (Free>4and<10) 1.40 0.00-4.00 - ng/ mL * Examination: G eneral Examination: GENERAL APPEARANCE: w ell developed, well nourished, in no acute distress. HEAD: n ormocephalic, atraumatic. EYES: p upils equal, round, reactive to light and accommodation, sclera non-icteric. EARS: n ormal. ORAL CAVITY: m ucosa moist. THROAT: c lear. NECK/THYROID: n warren supple, full range of motion, no cervical lymphadenopathy, no bruits. SKIN: w arm and dry, no suspicious lesions, abnormal left shoulder with a 5mm nevus that has 2 depths that has been seen by derm. HEART: r egular rate and rhythm, S1, S2 normal, no murmurs.? LUNGS: c lear to auscultation bilaterally. ABDOMEN: s oft, nontender, nondistended, bowel sounds present, normal, no organomegaly , no masses palpable. RECTAL EXAM: n ormal tone, no external hemorrhoids, no masses palpable, prostate normal, stool guaiac negative. MALE GENITOURINARY: c ircumcised, testes descended bilaterally, no testicular mass. EXTREMITIES: n o clubbing, cyanosis, or edema. NEUROLOGIC: n onfocal, motor strength normal upper and lower extremities, sensory exam intact. Assessment: * Assessment: 1. A nnual physical exam - Z00.00 (Primary) 2 . E levated BUN - R79.9 ? 3 . H ypercholesterolemia - E78.00 4 . B icuspid aortic valve - Q23.1 5 . O SA (obstructive sleep apnea) - G47.33 6 . L abile hypertension - I10 7 . M elanocytic nevi of trunk - D22.5 Plan: * Treatment: 2. E levated BUN L AB: Blood Urea Nitrogen (Ordered for 10/03/2024) L AB: Creatinine (Ordered for 10/03/2024) L AB: Lipid Panel (Ordered for 03/07/2025) Notes: stable, will continue to monitor, future labs ordered 3. H ypercholesterolemia Notes: stable remain high,advised on diet, will continue to monitor future labs ordereed 4. B icuspid aortic valve I maging: ECHO Notes: pending diagnostic testing??5.?TRENT (obstructive sleep apnea)? Notes: need notes from sleep medicine from this year/ needs to get study is going to call sleep medicine/ NOTES REQUESTED FROM SLEEP MED SERVICES??6.?Labile hypertension? Notes: gets good readings at home, will continue to monitor??7.?Melanocytic nevi of trunk? Notes: was evaluated by derm?? * Procedure Codes: * Preventive Medicine: Counseling: C are goal follow-up plan: [place] ounseling for abnormal BMI provided?Yes, Travis michel Normal BMI Follow-up Girish guillen encouragement to exercise. * * Sign off status: Completed true * Provider: Girish Muhammad MD Date: 0 09/05/2024 Generated for Esther de anda/Cortney/eTransmitting on: 1 12:19 PM EST History and Physical Notes * HPI (History of Present Illness) Category Sub-Category Detail Notes Category Not es Symptom(s) patient is a 49 yo male here for annual visit with review of recent labs and follow up of chronic issues Depression Screening PHQ-9 Little inte rest or pleasure in doing things: Not at all Feeling down, depressed, or hopeless: No t at all Trouble falling or staying asleep, or sl eeping too much: Not at all Feeling tired or having little energy: N ot at all Poor appetite or overeating: Not at all Feeling bad about yourself o r that you are a failure, or have let yourself or your family down: Not at all Trouble concentrating on thi ngs, such as reading the newspaper or watching television: Not at all Moving or speaking so slowly that other people could have noticed; or the opposite, being so fidgety or restless that you have been moving around a lot more than usual: Not at all Thoughts that you would be b keysha off or of hurting yourself in some way: Not at all Total Score: 0 Interpretation and Intervention Depression Flavia rowan Findings: Negative Follow-Up for Depression: : review of PH Q-9 found negative result, no follow-up needed SDOH Questions SDOH Questions In the past year have you been worried about losing housing?: No In the past year have you or any family members you live with been unable to get any of the following when it was really needed? Check all that apply:: None Communication Needs Communication Needs Does the patient have a hearing impairment: No Does the patient have a vision impairmen t?: Yes If yes, what is the vision impairment?: Contact Lenses Does the patient have a cognition impair ment?: No Examination Category Sub-Category Detail Notes Category Not es General Examination GENERAL APPEARANCE: well dev eloped, well nourished, in no acute distress HEAD: normocephalic, atrau matic EYES: pupils equal, round, reactive to light and accommodation, sclera non-icteric EARS: normal THROAT: clear NECK/THYROID: neck supple, full ra nge of motion, no cervical lymphadenopathy, no bruits HEART: regular rate and rhy thm, S1, S2 normal, no murmurs LUNGS: clear to auscultatio n bilaterally ABDOMEN: soft, nontender, non distended, bowel sounds present, normal, no organomegaly , no masses palpable NEUROLOGIC: nonfocal, motor stre ngth normal upper and lower extremities, sensory exam intact SKIN: warm and dry, no cruz picious lesions, abnormal left shoulder with a 5mm nevus that has 2 depths that has been seen by derm EXTREMITIES: no clubbing, cyanosi s, or edema MALE GENITOURINARY: circumcised, testes descended bilaterally, no testicular mass RECTAL EXAM: normal tone, no exte rnal hemorrhoids, no masses palpable, prostate normal, stool guaiac negative ORAL CAVITY: mucosa moist
--- OUTSIDE RECORDS SUMMARY | 2024-10-07 01:45 | XMS_ITS ---
Author Organization Murray Muhammad MD Address [address] [place] [phone] Care Team Providers Care Performance Makeup Artist Name Role Phone Murray Muhammad Primary Care Provider Results Component Value Reference Range Notes Blood Urea Nitrogen Reviewed date:10/07/2024 12:39:12 PM Interpretation: Performing Lab:[address] [phone] Notes/Report: Blood Urea Nitrogen 16 9-16 mg/dL Creatinine Reviewed date:10/07/2024 12:45:51 PM Interpretation: Performing Lab:[facility], [address] [place] [phone] Notes/Report: Creatinine 0.95 0.5-1.4 mg/dL Estimated Glomerular Filt Rate > 60 Chronic Kidney Disease: Estimated GFR < 60 mL/min/1.73m2 Severe Kidney Disease: Estimated GFR < 15 mL/min/1.73m2 REASON FOR VISIT BUN, CREATININE Encounters Encounter Location Date Provider Diagnosis Murray Muhammad MD [address] [place] [phone] 10/07/2024 Murray Muhammad Elevated BUN R79.9 Assessments Encounter Date Diagnosis (ICD Code) Assessment Notes Treatment Notes Treatment Clinical Notes Section Notes 10/07/2024 Elevated BUN (ICD-10 - R79.9) Plan Of Treatment Next Appt Details Provider Name:Murray De Jesus veronicar, 09/02/2025 07:30:00 AM, [address] [facility], [address], [place], [place], [phone], Provider Name:Murray De Jesus ier, 09/09/2025 08:30:00 AM, [address] [facility], [address], [place], [place], [phone], Progress Notes * DIANE SOLARESOB:[birth year] (49 yo M)Acc No.[id number]:10/07/2024 Progress Note Patient: TAMMI DRUMMOND Provider: Girish Muhammad MD :1975 A ge:49 Y S ex:Male Date:10/07/2024 Address:[address] [place], [place] [phone] Subjective: * Chief Complaints: * 1 . BUN, CREATININE. * Medical History: Objective: * Vitals: Assessment: * Assessment: 1. E levated BUN - R79.9 (Primary) Plan: * Treatment: * Procedure Codes: 3 6415 VENIPUNCT, ROUTINE* * * The named appointment provid er may or may not be the originator of this progress note, and it is not deemed complete until electronically signed by the appointment provider. Sign off status: Pending * Provider: Girish Muhammad MD Date: 0 10/07/2024 Generated for Esther de anda/Cortney/Keeleysmitting on: 12:17 PM EST
--- OUTSIDE RECORDS SUMMARY | 2024-11-19 04:30 | XMS_ITS ---
Author Organization Murray Muhammad MD Address [address] [place] [phone] Care Team Providers Care Patrol Guard Name Role Phone Murray Muhammad Primary Care Provider [phone] Allergies Allergen (clinical drug ingredient) Drug/Non Drug Allergy documented on EMR Reaction Allergy Type Onset Date Status paroxetine Paxil (uncoded) tongue swelling Allergy Active sulfamethoxazole / trimethoprim bactrim (uncoded) rash Allergy Active REASON FOR VISIT High BP Patient had Echo this AM BP 160/90 and 165/100 Medications Medication SIG (Take, Route, Frequency, Duration) Notes Start Date End Date Status Propranolol HCl ER 80 MG 1 capsule Orall y Once a day for 30 days 11/19/2024 Active Albuterol Sulfate HFA 108 (90 Base) MCG/ACT 1 puff as needed Inhalation every 4 hrs for 30 days 08/25/2020 Not-Taking Flonase 50 MCG/ACT 1 spray in [...] at bedtime Orally Once a day Not-Taking Immunizations Vaccine Route Administration Date Status Comme nts Fluarix Quadrivalent - 150 IM Intramuscular 11/19/2024 Adm inistered Vital Signs Blood pressure systolic 138 mm Hg 11/20/19 25 Blood pressure diastolic 96 mm Hg 025 Height 71 in 11/19/2024 Weight 201 lbs 11/19/2024 BMI 28.03 kg/m2 11/19/2024 weight is up 6 pounds since 09-05-24 Encounters Encounter Location Date Provider Diagnosis Murray Muhammad MD [address] [place] [address] [place] [phone] 11/19/2024 Murray Muhammad Migraine without aur a and without status migrainosus, not intractable G43.009 ; Labile hypertension I10 and Encounter for administration of vaccine Z23 Assessments Encounter Date Diagnosis (ICD Code) Assessment Notes Treatment Notes Treatment Clinical Notes Section Notes 11/19/2024 Migraine without aura and without status migrainosus, not intractable (ICD-10 - G43.009) 11/19/2024 Labile hypertension (ICD-10 - I10) patient verbaized understandng of medication and directions for use 11/19/2024 Encounter for administration of vaccine (ICD-10 - Z23) Regular flu vaccine administered Plan Of Treatment Medication Medication Name Sig Start Date Stop Date Notes Propranolol HCl ER 80 MG 1 capsule Orall y Once a day for 30 days 11/19/2024 Imitrex 50 MG 1 tablet at least 2 hours between doses as needed Orally Twice a day for migraine for 30 days 08/26/2022 Treatment Notes Assessment Notes Labile hypertension patient verbaized un derstandng of medication and directions for use Encounter for administration of vaccine Regular flu vaccine administered Next Appt Details Follow Up: 4 Weeks, Reason: Provider Name:Murray wilder, 09/02/2025 07:30:00 AM, [address] [place] [address], [place] [address], [place], [place], [phone], Provider Name:Murray wilder, 09/09/2025 08:30:00 AM, [address] [place] [address], [place] [address], [place], [place], [phone], Progress Notes * MUKESH SOLARES:[birth year] (49 yo M)Acc No.[id number]:11/19/2024 Progress Notes Patient: TAMMI DRUMMOND Provider: Girish Muhammad MD :1975 A ge:49 Y S ex:Male Date:11/19/2024 Address:[address] [place] [address] [place] [address] Subjective: * Chief Complaints: * H igh BP Patient had Echo this AM BP 160/90 and 165/100 * HPI: S ymptom(s): patient is a 49 yo male here because he had high bp when he had echo done this morning 160/90, 165/100. * ROS: G eneral/Constitutional: Denies C hills. D enies F atigue. D enies F ever. D enies H eadache. E NT: Denies S ore throat. R espiratory: Denies C ough. D enies S hortness of breath at rest. D enies S hortness of breath with exertion. C ardiovascular: Denies C hest pain at rest. D enies C hest pain with exertion. D enies D izziness. D enies P alpitations. D enies S hortness of breath. G astrointestinal: Denies D iarrhea. D enies N ausea. * Medical History: * Surgical History: * [...] Objective: * Vitals: H t: 71, Wt: 201, BMI:28.03, BP:138/96, Wt-k.17. weight is up 6 pounds since 09-05-24. * Examination: G eneral Examination: GENERAL APPEARANCE: a lert, well hydrated, in no distress.? HEAD: n ormocephalic. SKIN: g ood turgor. HEART: r egular rate and rhythm. LUNGS: n o wheezes, rales, rhonchi, clear to auscultation bilaterally. Assessment: * Assessment: 1. M igraine without aura and without status migrainosus, not intractable - G43.009 (Primary)? 2. L abile hypertension - I10 3 . E ncounter for administration of vaccine - Z23 Plan: * Treatment: 2. L abile hypertension Start Propranolol HCl ER Capsule Extended Release 24 Hour, 80 MG, 1 capsule, Orally, Once a day, 30 days, 30, Refills 5. Notes: patient verbaized understandng of medication and directions for use 3. E ncounter for administration of vaccine Notes: Regular flu vaccine administered * Immunizations: Fluarix Quadrivalent - 150 : 0.5 mL (Dose No:1) (Route: Intramuscular) given by Genie Gutiérrez , Office Staff on Left Deltoid * Procedure Codes: 9 0656 FLU VACCINE NO PRESERV 3 & >94804 IMMUNIZATION ADMIN * Follow Up: 4 Weeks * * Sign off status: Completed true * Provider: Girish Muhammad MD Date: 0 11/19/2024 Generated for Esther de anda/Cortney/Sherif on: 12:18 PM EST History and Physical Notes * HPI (History of Present Illness) Category Sub-Category Detail Notes Category Not es Symptom(s) patient is a 49 yo male here because he had high bp when he had echo done this morning 160/90, 165/100 Examination Category Sub-Category Detail Notes Category Not es General Examination GENERAL APPEARANCE: alert, w ell hydrated, in no distress HEAD: normocephalic HEART: regular rate and rhy thm LUNGS: no wheezes, rales, r honchi, clear to auscultation bilaterally SKIN: good turgor
--- OUTSIDE RECORDS SUMMARY | 2024-12-24 04:15 | XMS_ITS ---
Author Organization Murray Muhammad MD Address [address] [place], [place] [id number] Care Team Providers Care Branch Mechanic Name Role Phone Murray Muhammad Primary Care Provider Allergies Allergen (clinical drug ingredient) Drug/Non Drug Allergy documented on EMR Reaction Allergy Type Onset Date Status paroxetine Paxil (uncoded) tongue swelling Allergy Active sulfamethoxazole / trimethoprim bactrim (uncoded) rash Allergy Active REASON FOR VISIT 4 week Medications Medication SIG (Take, Route, Frequency, Duration) Notes Start Date End Date Status Flonase 50 MCG/ACT 1 spray in each nost ril Nasally Once a day for 30 day(s) 11/07/2014 Not-Taking Lisinopril 10 MG 1 tablet Orally Once a day for 30 days 12/24/2024 Active Propranolol HCl ER Beads 80 MG 1 capsule at bedtime Orally Once a day Not-Taking Albuterol Sulfate HFA 108 (90 Base) MCG/ACT 1 puff as needed Inhalation every 4 hrs for 30 days 08/25/2020 Not-Taking Valtrex 1 GM 1 tablet Orally thre e times a day for 7 days 01/02/2017 Not-Takin g Propranolol HCl ER 80 MG 1 capsule Orall y Once a day for 30 days 11/19/2024 Active Imitrex 50 MG 1 tablet at least 2 hours between doses as needed Orally Twice a day for migraine for 30 days 08/26/2022 Active Problems Problem Type SNOMED Code ICD Code Onset Dates Problem Status W/U Status Risk Notes Problem Essential hypertension (16842113) Essential (primary) hypertension (I10) Active confirmed Vital Signs Blood pressure systolic 142 mm Hg 12/25/19 25 Blood pressure diastolic 88 mm Hg 025 Height 71 in 12/24/2024 Weight 202 lbs 12/24/2024 BMI 28.17 kg/m2 12/24/2024 Encounters Encounter Location Date Provider Diagnosis Murray Muhammad MD [address] [place] [address] [place] [id number] 12/24/2024 Murray Muhammad Migraine without aur a and without status migrainosus, not intractable G43.009 and Essential (primary) hypertension I10 Assessments Encounter Date Diagnosis (ICD Code) Assessment Notes Treatment Notes Treatment Clinical Notes Section Notes 12/24/2024 Migraine without aura and without status migrainosus, not intractable (ICD-10 - G43.009) doing well on propranol, will continue current regiment 12/24/2024 Essential (primary) hypertension (ICD-10 - I10) patient verbalized understanding of medication and directions for use Plan Of Treatment Medication Medication Name Sig Start Date Stop Date Notes Lisinopril 10 MG 1 tablet Orally Once a day for 30 days Treatment Notes Assessment Notes Migraine without aura and wi thout status migrainosus, not intractable doing well on propranol, will continue current regiment Essential (primary) hypertension patient verbalized understanding of medication and directions for use Next Appt Details Follow Up: 2 Months, Reason: Provider Name:Murray wilder, 09/02/2025 07:30:00 AM, [address] [place] [address], [address] [place] [address], [phone], Provider Name:Murray wilder, 09/09/2025 08:30:00 AM, [address] [place] [address], [address] [place] [address], [phone], Progress Notes * DIANE SOLARESOB:[birth year] (49 yo M)Acc No.[id number]:12/24/2024 Progress Notes Patient: TAMMI DRUMMOND Provider: Girish Muhammad MD :1975 A ge:49 Y S ex:Male Date:12/24/2024 Address:[facility] Subjective: * Chief Complaints: * 4 week * HPI: S ymptom(s): patient is a 49 yo male here for 4 week follow up visit, migraines have decreased on the propranol. * ROS: G eneral/Constitutional: Denies C hills. D enies F atigue. D enies F ever. D enies H eadache. E NT: Denies S ore throat. R espiratory: Denies C ough. D enies S hortness of breath at rest. D enies S hortness of breath with exertion. C ardiovascular: Denies C hest pain at rest. D enies C hest pain with exertion. D enies P alpitations. D enies S hortness of breath. G astrointestinal: Denies D iarrhea. D enies N ausea. * Medical History: * Surgical History: * Hospitalization/Major Diagno stic Procedure: * Medications: T akingImitrex 50 MG Tablet 1 tablet at least 2 hours between doses as needed Orally Twice a day for migraine Propranolol HCl ER 80 MG Capsule Extended Release 24 Hour 1 capsule Orally Once a day Taking Imitrex 50 MG Tablet 1 tablet at least 2 hours between doses as needed Orally Twice a day for migraine Taking Propranolol HCl ER 80 MG Capsule Extended Release 24 Hour 1 capsule Orally Once a day Not-Taking/PRNPropranolol HCl ER Beads 80 MG Capsule Extended [...] puff as needed Inhalation every 4 hrs Not- Taking/PRN Valtrex 1 GM Tablet 1 tablet Orally three times a day Not-Taking/PRN Flonase 50 MCG/ACT Suspension 1 spray in each nostril Nasally Once a day Medication List reviewed and reconciled with the patient * Allergies: b actrim: rashPaxil: tongue swellingyes[Allergies Verified] Objective: * Vitals: H t: 71, Wt: 202, BMI:28.17, BP:142/88, Repeat BP:150/96, Wt-k.63. * Examination: G eneral Examination: GENERAL APPEARANCE: a lert, well hydrated, in no distress.? SKIN: g ood turgor. HEART: r egular rate and rhythm, no murmurs, rubs, gallops.? LUNGS: n o wheezes, rales, rhonchi, good air movement, clear to auscultation bilaterally. Assessment: * Assessment: 1. M igraine without aura and without status migrainosus, not intractable - G43.009 (Primary)? 2. E ssential (primary) hypertension - I10 Plan: * Treatment: 2. E ssential (primary) hypertension Start Lisinopril Tablet, 10 MG, 1 tablet, Orally, Once a day, 30 days, 30, Refills 5. Notes: patient verbalized understanding of medication and directions for use * Procedure Codes: * Follow Up: 2 Months * * Sign off status: Completed true * Provider: Girish Muhammad MD Date: Generated for Esther de anda/Cortney/Jacielitting on: 12:18 PM EST History and Physical Notes * Examination Category Sub-Category Detail Notes Category Not es General Examination GENERAL APPEARANCE: alert, w ell hydrated, in no distress HEART: regular rate and rhy thm, no murmurs, rubs, gallops LUNGS: no wheezes, rales, r honchi, good air movement, clear to auscultation bilaterally SKIN: good turgor
--- OUTSIDE RECORDS SUMMARY | 2025-03-10 02:00 | XMS_ITS ---
Author Organization Murray Muhammad MD Address [address] [place] [phone] Care Team Providers Care Speech Correction Assistant Name Role Phone Murray Muhammad Primary Care Provider Results Component Value Reference Range Notes Lipid Panel (Not yet reviewe d by provider) Interpretation: Performing Lab:[facility], [address] [place] [id number] Notes/Report: Triglycerides 92 <150 mg/dL Desirable Triglyceride: less than 150 mg/dL Borderline High Triglyceride 150-199 mg/dL High Triglyceride: 200-499 mg/dL Very High Triglyceride: greater than or equal to 5OO mg/dL Cholesterol 230 <200 mg/dL Desirable Cholesterol: less than 200 mg/dL Borderline High Cholesterol: 200-239 mg/dL High Cholesterol: greater than 239 mg/dL LDL Cholesterol Calculated 157 <100 mg/dL Desirable LDL: less than 100 mg/dL Near Optimal/Above Optimal LDL: 110-129 mg/dL Borderline High LDL: 130-159 mg/dL High LDL: 160-189 mg/dL Very High LDL: greater than or equal to 190 mg/dL HDL Cholesterol 55 >40 mg/dL Desirable HDL: greater than 40 mg/dL Note: This HDL assay may give artificially low results in patients with liver disease. REASON FOR VISIT FASTING LIPIDS Encounters Encounter Location Date Provider Diagnosis Murray Muhammad MD [address] [place], [place] [phone] 03/10/2025 Murray Muhammad Hypercholesterolemia E78.00 and Elevated BUN R79.9 Assessments Encounter Date Diagnosis (ICD Code) Assessment Notes Treatment Notes Treatment Clinical Notes Section Notes 03/10/2025 Hypercholesterolemia (ICD-10 - E78.00) 03/10/2025 Elevated BUN (ICD-10 - R79.9) Plan Of Treatment Pending Test Test Name Order Date Lipid Panel 03/10/2025 Next Appt Details Provider Name:Murray De Jesus ieriki, 09/02/2025 07:30:00 AM, [address] [place] [address], Suite [facility], [place], [place], [phone], Provider Name:Murray wilder, 09/09/2025 08:30:00 AM, [address] [place] [address], [address], [phone], Progress Notes * REFUGIOABA PARKERKEVINOB:[birth year] (49 yo M)Acc No.[id number]:03/10/2025 Progress Note Patient: TAMMI DRUMMOND Provider: Girish Muhammad MD :1975 A ge:49 Y S ex:Male Date:03/10/2025 Address:[address] [place], [place] [phone] Subjective: * Chief Complaints: * 1 . FASTING LIPIDS. * Medical History: Objective: * Vitals: Assessment: * Assessment: 1. H ypercholesterolemia - E78.00 (Primary) 2 . E levated BUN - R79.9 ? Plan: * Treatment: * Procedure Codes: 3 6415 VENIPUNCT, ROUTINE* * * The named appointment provid er may or may not be the originator of this progress note, and it is not deemed complete until electronically signed by the appointment provider. Sign off status: Pending * Provider: Girish Muhammad MD Date: Generated for Esther de anda/Cortney/Jacielitting on: 1 12:19 PM EST
[2025-03-10 11:20] LABS: Cholesterol 230 mg/dL (<200); HDL Cholesterol 55 mg/dL (>40); Triglycerides 92 mg/dL (<150)
--- OUTSIDE RECORDS SUMMARY | 2025-03-10 12:19 | XMS_ITS | Patient Health Record ---
Author Organization Murray Muhammad MD Address [address] [place], [place] [id number] Care Team Providers Care Hammer Smith Name Role Phone Murray Muhammad Primary Care Provider Allergies Allergen (clinical drug ingredient) Drug/Non Drug Allergy documented on EMR Reaction Allergy Type Onset Date Status paroxetine Paxil (uncoded) tongue swelling Allergy Active sulfamethoxazole / trimethoprim bactrim (uncoded) rash Allergy Active Results Component Value Reference Range Notes Complete Blood Count Auto Di ff Reviewed date:08/30/2024 04:39:12 PM Interpretation: Performing Lab:[facility], [address] [place] [phone] Notes/Report: White Blood Count 7.8 4.8-10.8 X10*3/uL [...] NRBC Abs Auto 0.000 0.0-0.012 X10*3/uL Comprehensive [place]. Panel Fa st Reviewed date:08/30/2024 04:37:16 PM Interpretation: Performing Lab:[facility], [address] [place] [phone] Notes/Report: Sodium 138 135-145 mmol/L Potassium 3.7 [...] Panel Reviewed date:08/30/2024 04:38:00 PM Interpretation: Performing Lab:[address] [phone] Notes/Report: Triglycerides 96 <150 mg/dL Desirable Triglyceride: [...] (Free>4and<10) Reviewed date:08/30/2024 04:37:26 PM Interpretation: Performing Lab:[address] [phone] Notes/Report: PSA,Total (Free>4and<10) 1.40 0.00-4.00 ng/mL A [...] Nitrogen Reviewed date:10/07/2024 12:39:12 PM Interpretation: Performing Lab:[address] [phone] Notes/Report: Blood Urea Nitrogen 16 9-16 mg/dL Creatinine Reviewed date:10/07/2024 12:45:51 PM Interpretation: Performing Lab:[facility], [address] [place] [phone] Notes/Report: Creatinine 0.95 0.5-1.4 mg/dL Estimated Glomerular Filt Rate > 60 Chronic Kidney Disease: Estimated GFR < 60 mL/min/1.73m2 Severe Kidney Disease: Estimated GFR < 15 mL/min/1.73m2 Lipid Panel (Not yet reviewe d by provider) Interpretation: Performing Lab:[facility], [address] [place] [phone] Notes/Report: Triglycerides 92 <150 mg/dL Desirable Triglyceride: [...] low results in patients with liver disease. Reason For Referral No Information Medications Medication [...] times a day for 7 days 01/02/2017 Not-Taktom g Propranolol HCl ER 80 MG TAKE 1 CAPSULE BY MOUTH DAILY for 30 Active Imitrex 50 MG 1 tablet at least 2 hours between doses as needed Orally Twice a day for migraine for 30 days 08/26/2022 Active Immunizations Vaccine Route Administration Date Status Commfabienne villeda Flu Vaccine IM Intramuscular 11/19/2012 Administered Fluarix Quadrivalent IM Intramuscular 12/02/2014 Adminsindy clark TDaP IM Intramuscular 09/04/2015 Administered Fluarix Quadrivalent Unknown 12/20/2016 Administered Tracy tate and David Fluarix Quadrivalent IM Intramuscular 01/11/2018 Adminsindy clark pt was given the vaccine at [facility]. Fluarix Quadrivalent IM Intramuscular 01/08/2019 Adminsindy red TDaP Unknown 09/26/2019 Administered Given at ER for dog bite Fluarix Quadrivalent IM Intramuscular 01/30/2020 Adminsindy clark SARS-COV-2 Pfizer Unknown 05/13/2020 Administered SARS-COV-2 Pfizer Unknown 06/03/2020 Administered Fluarix Quadrivalent IM Intramuscular 12/27/2022 Adminsindy clark Fluarix Quadrivalent - 150 IM Intramuscular 01/02/2024 Administered Fluarix Quadrivalent - 150 IM Intramuscular 11/19/2024 Administered Tetanus Unknown 09/04/2015 Pending Social History [...] Problem Status W/U Status Risk Notes Problem 409753729 Reflux esophagit is (K21.00) Active confirmed Problem Essential hypertension (18429738) Essential (primary) hypertension (I10) Active confirmed Problem 37066932 Calculus of gallbladder without cholecystitis without obstruction (K80.20) Active confirmed Problem 042401034 Mild intermitten t asthma without complication (J45.20) Active confirmed Problem 444737017 Labile hypertens ion (I10) Active confirmed Problem 900160468 Irregular heart beat (I49.9) Active confirmed Problem 952867230 Migraine without aura and without status migrainosus, not intractable (G43.009) Active confirmed Problem 1526251 Post herpetic neuralgia (B02.29) Active confirmed Problem 05172863 Bicuspid aortic valve (Q23.1) Active confirmed Problem 230304360 Esophageal erosi ons (K22.10) Active confirmed Problem 49863644 Elevated cholest gildardo (E78.00) Active confirmed Problem Hypercholesterolemia (49888186) Hypercholesterolemia (E78.00) Active confirmed Problem 19516607 TRENT (obstructive sleep apnea) (G47.33) Active confirmed Problem 46344537 Post-concussion headache (G44.309) Active confirmed Problem 80638450 Kidney stone on right side (N20.0) Active confirmed Problem 23192888 Gallbladder ston e without cholecystitis or obstruction (K80.20) Active confirmed Vital Signs Blood pressure diastolic 88 mm Hg 12/24/2024 Height 71 in 12/24/2024 Blood pressure systolic 142 mm Hg 12/24/2024 Weight 202 lbs 12/24/2024 BMI 28.17 kg/m2 12/24/2024 Encounters Encounter Location Date Provider Diagnosis Murray Muhammad MD [address] [place] [id number] 08/30/2024 Murray Muhammad Blood tests for rout ine general physical examination Z00.00 ; Labile hypertension I10 and Hypercholesterolemia E78.00 Murray Muhammad MD [address] [place] [id number] 10/07/2024 Murray Muhammad Elevated BUN R79.9 Murray Muhammad MD [address] [place] [address] [id number] 03/10/2025 Murray Muhammad Hypercholesterolemia E78.00 and Elevated BUN R79.9 Murray Muhammad MD [address] [place] [address] Drive [address] [place] [id number] 04/02/2024 Murray Muhammad Migraine without aur a and without status migrainosus, not intractable G43.009 ; Bicuspid aortic valve Q23.1 ; TRENT (obstructive sleep apnea) G47.33 and Labile hypertension I10 Murray Muhammad MD [address] [place] [id number] 09/05/2024 Murray Muhammad Elevated BUN R79.9 ; Annual physical exam Z00.00 ; Hypercholesterolemia E78.00 ; Bicuspid aortic valve Q23.1 ; TRENT (obstructive sleep apnea) G47.33 ; Labile hypertension I10 and Melanocytic nevi of trunk D22.5 Murray Muhammad MD [address] [place] [id number] 11/19/2024 Murray Muhammad Migraine without aur a and without status migrainosus, not intractable G43.009 ; Labile hypertension I10 and Encounter for administration of vaccine Z23 Murray Muhammad MD [address] [place] [id number] 12/24/2024 Murray Muhammad Migraine without aur a and without status migrainosus, not intractable G43.009 and Essential (primary) hypertension I10 Murray Muhammad MD [address] [place] [id number] 07/02/2024 Murray Muhammad Assessments Encounter Date Diagnosis (ICD Code) Assessment Notes Treatment Notes Treatment Clinical Notes Section Notes 08/30/2024 Blood tests for rout ine general physical examination (ICD-10 - Z00.00) 10/07/2024 Elevated BUN (ICD-10 - R79.9) 03/10/2025 Hypercholesterolemia (ICD-10 - E78.00) 04/02/2024 Migraine without aur a and without status migrainosus, not intractable (ICD-10 - G43.009) doing well, will continue current regiment 09/05/2024 Elevated BUN (ICD-10 - R79.9) stable, will continue to monitor, future labs ordered 09/05/2024 Annual physical exam (ICD-10 - Z00.00) labs reviewed and discussed with patient 11/19/2024 Migraine without aur a and without status migrainosus, not intractable (ICD-10 - G43.009) 11/19/2024 Labile hypertension (ICD-10 - I10) patient verbaized understandng of medication and directions for use 12/24/2024 Migraine without aur a and without status migrainosus, not intractable (ICD-10 - G43.009) doing well on propranol, will continue current regiment 12/24/2024 Essential (primary) hypertension (ICD-10 - I10) patient verbalized understanding of medication and directions for use 08/30/2024 Labile hypertension (ICD-10 - I10) 03/10/2025 Elevated BUN (ICD-10 - R79.9) 04/02/2024 Bicuspid aortic valv e (ICD-10 - Q23.1) had echo unchanged 09/05/2024 Hypercholesterolemia (ICD-10 - E78.00) stable remain high,advised on diet, will continue to monitor future labs ordereed 11/19/2024 Encounter for administration of vaccine (ICD-10 - Z23) Regular flu vaccine administered 08/30/2024 Hypercholesterolemia (ICD-10 - E78.00) 04/02/2024 TRENT [...] Test Test Name Order Date Electrocardiogram (EKG) 07/27/2017 Electrocardiogram (EKG) 08/09/2018 Electrocardiogram (EKG) 05/28/2015 XR GI SERIES 05/28/2015 ECHO 09/05/2024 ECHO 12/31/2019 ECHO 08/31/2023 CA echo transthoracic complete US renal RT 11/22/2021 Lipid Panel 03/10/2025 Future Test Test Name Order Date ECHO 10/08/2021 CT ABD & PELVIS NO CONTRAST 12/03/2021 Next Appt Details Provider Name:Murray martinr, 09/02/2025 07:30:00 AM, [address], [address], [place], [place], [id number], Provider Name:Murray martinr, 09/09/2025 08:30:00 AM, [address], [address], [place], [place], [id number], Insurance Providers Payer Name Payer Address Payer Phone Subscriber Number Group Number Insured Name Patient Relationship to Insured Coverage Start Date Coverage End Date [facility] [address] [facility] [place] [phone] [id number] TAMMI SOLARES Self - patient is the insured Medical (General) History Medical History History ICD Code Needs echo every 2 yrs - don e 2015; done 08/03/17, done 10/08/19 echo 2023 unchanged Colonoscopy 02/01 pending biopsy tubular adenoma Surgical History Surgery Date(Month/Year)
== END 2025-03-10 10:44 ==
LOC: HO.LNP 10:43
PROVIDERS: Visit Provider Internal Medicine
DX: R79.9 Abnormal finding of blood chemistry, unspecified (principal)
CPT/HCPCS: 80061